=== PATIENT | female | born 1945 | race Caucasian/White ===

== ENCOUNTER 2017-08-31 17:26 | Inpatient (IN) | payer OTHER, MEDICARE ==
[~2017-08-31] VITALS: Ht 161.3 cm; Wt 92.1 kg
[~2017-08-31 17:26] MED LIST: ALBUTEROL2.5 MG/3 M INH; ASPIRIN81 M4 PO; CELECOXIB200 M1 PO; DAILY VITE1 EACH PO; DULOXETINE HCL60 MG PO; FISH OIL 1,0001 EACH PO; GABAPENTIN300 M2 PO; HUMALOG KW100 UNIT/1 SC; LEVEMIR FL100 UNIT/1 SC; LEVEMIR100 UNIT/1 SC; LISINOPRIL10 M1 PO; METFORMIN HCL1000 M1 PO; OMEPRAZOLE20 M2 PO; PREDNISONE10 M2 PO; PROAIR HFA8.5 GM INH; SIMVASTATIN20 M2 PO; TIZANIDINE HCL2 M1 PO; TRAMADOL HCL50 M1 PO; URSODIOL300 M1 PO
--- NOTE | 2017-08-31 19:33 | RADIOLOGY REPORT ---
EXAMINATION: XR CHEST CLINICAL INFORMATION: Rule out pneumonia. Chronic cough, rhonchi, immunocompromised. COMPARISON: Chest CTA 08/24/2017. TECHNIQUE: 2 views of the chest were obtained. FINDINGS: There is new airspace opacity in the left lower lobe overlying the spine on the lateral view but not well seen on the frontal view. This region was clear on the plant operations vice president image of 08/24/2017. This finding is concerning for developing pneumonia. The lungs are otherwise clear without edema, effusion, or pneumothorax. The cardiomediastinal silhouette is stable. There is a right chest wall port in place. There are multilevel degenerative changes in the thoracic spine. IMPRESSION: Findings concerning for developing pneumonia in the left lower lobe.
--- NOTE | 2017-08-31 21:46 | ED DYSPNEA/ASTHMA COMPLAINT ---
History of Present Illness General Chief Complaint: General Adult Stated Complaint: PT WAS SENT FOR A CHEST XRAY Source: patient, old records Exam Limitations: no limitations Vital Signs & Intake/Output Vital Signs & Intake/Output Vital Signs Date Time Temp Pulse Resp B/P B/P Pulse O2 O2 Flow FiO2 Mean Ox Delivery Rate 08/31 2317 98.5 104 18 138/84 93 Room Air Room Air 08/31 1820 98.0 116 16 149/89 92 Room Air ED Intake and Output 09/01 0000 08/31 1200 Intake Total Output Total Balance Patient 203 lb Weight Weight Reported by Patient Measurement Method Allergies Coded Allergies: erythromycin base (UNKNOWN 08/04/17) indomethacin (UNKNOWN 08/04/17) Reconcile Medications Albuterol Sulfate (Proair Hfa) 90 MCG HFA.AER.AD 2 PUF INH Q4-6 PRN PRN Wheeze /SOB . Aspirin (Aspirin*) 81 MG TAB.CHEW 1 TAB PO DAILY HEART HEALTH (Reported) Celecoxib 200 MG CAPSULE 1 CAP PO DAILY PRN PAIN (Reported) Duloxetine HCl 60 MG CAPSULE.DR 1 CAP PO DAILY ANXIETY (Reported) Gabapentin 300 MG CAPSULE 2 CAP PO TID NEUROPATHY (Reported) Insulin Detemir (Levemir) 100 UNIT/ML VIAL 45 U SC DAILY DIABETES (Reported) Insulin Detemir (Levemir Flextouch) 100 UNIT/ML (3 ML) INSULN.PEN 48 U SC QPM DIABETES (Reported) Insulin Lispro (Humalog Kwikpen U-100) 100 UNIT/ML INSULN.PEN 8 U SC DAILY DIABETES (Reported) Insulin Lispro (Humalog Kwikpen U-100) 100 UNIT/ML INSULN.PEN 10 U SC QPM DIABETES (Reported) Lisinopril 10 MG TABLET 0.5 TAB PO DAILY HEART (Reported) Metformin HCl 1,000 MG TABLET 1 TAB PO BID DIABETES (Reported) Multivitamin (Daily Janine) 1 EACH TABLET 1 TAB PO DAILY VITAMIN SUPPORT ( Reported) [place]-3 Fatty Acids/Fish Oil (Fish Oil 1,000 MG Capsule) 340 MG-1,000 MG CAPSULE 1 CAP PO DAILY SUPPLEMENT (Reported) Omeprazole 20 MG CAPSULE.DR 1 CAP PO DAILY GI (Reported) Prednisone 10 MG TABLET 1 TAB PO DAILY Shortness of Breath . Simvastatin (Simvastatin*) 20 MG TABLET 1 TAB PO QPM CHOLESTEROL (Reported) Tizanidine HCl 2 MG TABLET 1-2 TAB PO TID PRN PAIN (Reported) Tramadol HCl 50 MG TABLET 1-2 TAB PO TIDPRN PRN PAIN (Reported) Ursodiol 300 MG CAPSULE 1 CAP PO DAILY GALLSTONE (Reported) Triage Note: 71F RETURNS TO ED AFTER RECENT ADMISSION FOR OBS FOR SOB. SAW PA TODAY WHO LISTENED TO HER LUNG AND IS CONCERNED SHE HAS PNA, SO SENT HER TO ED FOR CXR AND POSSIBLE ADMISSION. PT NOTABLY SOB WITH EXERTION AND AMBULATORY O2 SAT 89-90% IN TRIAGE AND WAITING ROOM. TACHYCARDIC ON EXERTION RATE 110'S. COUGH IS RONCHOROUS BUT UNABLE TO EXPECTORATE. +YELLOW NASAL DISCHARGE. LAST CHEMO TX 08/12/17 FOR PERITONEAL CARCINOMA. TX 08/12/17 FOR PERITONEAL CARCINOMA. Triage Nurses Notes Reviewed? yes HPI: 71 yo F with h/o recently diagnosed primary peritoneal carcinoma, T2DM, HTN, chronic back pain Curly undergoing chemotherapy her next treatment was scheduled for this upcoming week presents the ER after she was seen at an urgent care and was sent in for evaluation. The patient was seen here 7 days ago for shortness of breath she was kept as an observation for bronchitis she had a CAT scan and chest x-ray at that time or unremarkable. She was sent home on a Medrol dose pack and inhalers. She states she's been feeling more winded with exertion. No fevers or chills. She denies sputum production chest pain abdominal pain nausea vomiting diarrhea. Patient oxygen saturation 89-90% with exertion symptoms are better with rest (Abdi Hampton) Past History Travel History Traveled to [place] past 21 day No Medical History Any Pertinent Medical History? see below for history Neurological: NONE EENT: NONE Cardiovascular: NONE Respiratory: NONE Gastrointestinal: NONE Hepatic: NONE Renal: NONE Musculoskeletal: NONE Psychiatric: NONE Endocrine: NONE Cancer(s): PERITONEAL CARCINOMA History of MRSA: No History of VRE: No History of CDIFF: No Influenza Vaccine: 08/10/17 Surgical History Surgical History: non-contributory Psychosocial History What is your primary language Danish Tobacco Use: Quit >30 days ago Family History Hx Contributory? No (Abdi Hampton) Review of Systems Review of Systems Constitutional: Reports: see HPI. Comments Review of systems: See HPI, All other systems negative. Constitutional, chills no fever, HEENT: no sore throat no congestion, no ear pain Cardiovascular: No chest pain , no palpitation Skin: no rashes, no change in skin Respiratory: dyspnea cough no sputum no hemoptysis GI: No nausea no vomiting, no diarrhea, : No dysuria Muscle skeletal: No joint pain, no back pain, no neck pain, Neurologic: , no headache Psych: No stress Heme/endocrine: No bruising Immunology: No lymphadenopathy (Abdi Hampton) Physical Exam Physical Exam General Appearance: well developed/nourished, alert, awake Respiratory: chest non-tender, rhonchi Comments: Well-developed well-nourished person in no acute distress HEENT: Normal EENT exam; PERRL, EOMI,HEAD is atraumatic. moist mucous membranes. Neck: Supple, normal range of motion Back: Nontender, no CVA tenderness. Full range of motion Cardiovascular: Regular rate and rhythms no murmurs rubs Respiratory: No respiratory distress. Patient speaking in full complete sentences. Diminished breath of several left base Abdomen: Soft, nontender nondistended, no appreciable organomegaly. Normal bowel sounds. No rebound/guarding, Extremity: No edema, full range of motion of extremities Neuro: Alert oriented x3, motor sensory normal. There were no obvious focal neurologic abnormalities. Skin: No appreciable rash on exposed skin, skin is warm and dry. Psych: Mood and affect is normal, memory and judgment is normal. Core Measures ACS in differential dx? Yes CVA/TIA Diagnosis No Sepsis Present: No Sepsis Focused Exam Completed? No (Abdi Hampton) Progress Differential Diagnosis: AMI, CHF, COPD, pericarditis, pulmonary embolism, pneumonia, pneumothorax, unstable angina Plan of Care: Orders Procedure Date/time Status Heart Healthy Diet 09/01 B Active LACTIC ACID 09/[address] in observation 08/31 2329 Active ED Holding Orders 08/31 230 Active Vital Signs 08/31 230 Active Code Status 08/31 230 Active RAPID VIRAL INFLUENZA A 08/31 2225 Active BLOOD CULTURE 08/31 2143 Active TROPONIN LEVEL 08/31 2143 Active LACTIC ACID 08/31 2143 Active COMPREHENSIVE METABOLIC PANEL 08/31 2143 Active CBC WITHOUT DIFFERENTIAL 08/31 2143 Complete EKG 08/31 1819 Active Laboratory Tests 08/31/17 2346: Anion Gap 10, Estimated GFR > 60, BUN/Creatinine Ratio 65.0 H, Glucose 215 H, Lactic Acid Pending, Calcium 9.7, Total Bilirubin 0.8, AST 28, ALT 30, Alkaline Phosphatase 79, Troponin I < 0.01, Total Protein 6.9, Albumin 3.6, Globulin 3.3, Albumin/Globulin Ratio 1.1, CBC w Diff NO MAN DIFF REQ, RBC 4.27, MCV 81.0, MCH 26.1 L, RDW 17.0 H, MPV 7.4, Gran % 56.8, Lymphocytes % 33.1, Monocytes % 6.9, Eosinophils % 2.5, Basophils % 0.7, Absolute Granulocytes 5.7, Absolute Lymphocytes 3.3, Absolute Monocytes 0.7 H, Absolute Eosinophils 0.3, Absolute Basophils 0.1, PUBS MCHC 32.2 L Microbiology 08/31 2346 BLOOD: Blood Culture - RECD 08/31 2225 NASOPHARYN: Influenza Virus A & B Rapid Smear - ORD 08/31 2143 BLOOD: Blood Culture - ORD Old records are patient's previous visit on August 24 were reviewed including the CTA and chest x-ray. Discussed the patient's chest x-ray findings labs ordered upon being brought back to the room at 2200 and need for admission given chemotherapy, hypoxia and pneumonia 2100 case d/w dr ramirez will admit d/w dr hinojosa agrees withplan, will follow up on pending labs Diagnostic Imaging: Viewed by Me: Radiology Read. Discussed w/RAD: Radiology Read. Radiology Impression: PATIENT: SEJAL SCHULER PRESENT AGE: 71 PATIENT ACCOUNT NO: [id number] : 45 LOCATION: [facility] ORDERING PHYSICIAN: Rah Arellano (TBS) DO SERVICE DATE: 08/31/17 EXAM TYPE: RAD - XRY-CHEST XRAY, PA AND LATERAL EXAMINATION: XR CHEST CLINICAL INFORMATION: Rule out pneumonia. Chronic cough, rhonchi, immunocompromised. COMPARISON: Chest CTA 08/24/2017. TECHNIQUE: 2 views of the chest were obtained. FINDINGS: There is new airspace opacity in the left lower lobe overlying the spine on the lateral view but not well seen on the frontal view. This region was clear on the garment inspector image of 08/24/2017. This finding is concerning for developing pneumonia. The lungs are otherwise clear without edema, effusion, or pneumothorax. The cardiomediastinal silhouette is stable. There is a right chest wall port in place. There are multilevel degenerative changes in the thoracic spine. IMPRESSION: Findings concerning for developing pneumonia in the left lower lobe. DICTATED BY: Fabiano Bautista MD DATE/TIME DICTATED:08/31/171924 ACID CONDITIONER:MADDISON DATE/TIME TRANSCRIBED:08/31/171924 CONFIDENTIAL, DO NOT COPY WITHOUT APPROPRIATE AUTHORIZATION. <Electronically signed in Other Vendor System> SIGNED BY: Fabiano Bautista MD 08/31/171932 Initial ED EKG: normal intervals, normal p-waves, normal QRS complex, STACH AT 100 Prior EKG: unchanged (Abdi Hampton) Departure Departure Time of Disposition: 2251 Disposition: STILL A PATIENT Condition: Stable Clinical Impression Primary Impression: Pneumonia Secondary Impressions: Hypoxia Referrals: Keshia BAILEY,Saud Aguilar (PCP/Family) Departure Forms: Customer Survey General Discharge Information Admission Note Spoke With: Louann Ramirez MD Documentation of Exam: Documentation of any treatments & extenuating circumstances including Concerns Regarding Discharge (functional status, medication knowledge or non-compliance, living conditions, etc.) that warrant an admission rather than observation: IV antibiotics, respiratory treatments when necessary oncology consult pulmonology consult trend labs and cultures given patient's hypoxia with exertion premature discharge would BE medically harmful (Abdi Hampton) Observation Note Spoke With: Louann Ramirez MD Physician Advisor Notified: NEERU HINOJOSA MD Place Patient In: Non-ED OBS Care Area Rationale for Observation: My rational for observation is as follows [patient was recently discharged from the hospital and now has pneumonia. Patient will need IV antibiotics, pulmonary consult, follow-up cultures]. (Neeru Hinojosa MD) Critical Care Note Critical Care Note Critical Care Time: non-applicable (Abdi Hampton)
[2017-09-01 00:07] LABS: ABSOLUTE BASOPHIL COUNT 0.1 /CUMM (0.0-0.2); ABSOLUTE EOSINOPHIL COUNT 0.3 /CUMM (0.0-0.7); ABSOLUTE GRANULOCYTE CT 5.7 /CUMM (1.4-6.5); ABSOLUTE LYMPH COUNT 3.3 /CUMM (1.2-3.4); ABSOLUTE MONOCYTE COUNT 0.7 /CUMM (0.10-0.60); BASOPHIL % 0.7 % (0.0-2.0); EOSINOPHIL % 2.5 % (0-5); GRANULOCYTE % 56.8 % (42.2-75.2); HEMATOCRIT 34.6 % (37-47); MEAN CORPUSCULAR HGB 26.1 PG (27.0-31.0); MEAN CORPUSCULAR HGB CONC 32.2 G/DL (33.0-37.0); MEAN PLATELET VOLUME 7.4 FL (7.4-10.4); PLATELET COUNT 392 /CUMM (130-400); RED BLOOD CELL CT 4.27 /CUMM (4.20-5.40); WHITE BLOOD CELL COUNT 10.1 /CUMM (4.8-10.8)
--- NOTE | 2017-09-01 01:09 | History & Physical ---
GiannadeliofedericoJohnnieleilani 09/01/17 0109: General Information and HPI MD Statement: I have seen and personally examined SEJAL SCHULER and documented this H&P. The patient is a 71 year old F who presented with a patient stated chief complaint of []. Source of Information: patient, old records Exam Limitations: no limitations History of Present Illness: Ms Schuler is a 71-year-old woman was known to be in her usual state of health until a week ago. She was recently admitted to [facility] with a diagnosis of acute bronchitis and was discharged home on tapering dose of prednisone. She has a PMHx of endometrial Ca s/p hysterectomy( dx'ed 2015), peritoneal carcinoma( dx'ed in 05/2017, tx'ed w/ chemo carbo+taxel 08/12), chronic back pain. After she was discharged from the hospital, she felt improved. Dyspnea improved , and did not have any cough. No fever, chest pain, palpitations. She was seen by her primary care physician, and found abnormal lung sounds; and recommended her to go to the ED for getting an x-ray. No lightheadedness, syncope, or dysuria noted. No nausea or vomiting or diarrhea. Reported improving weakness and lethargy. As per the ED note, she was found to be hypoxemic 89-90%. Reports poor control of blood sugars. Allergies/Medications Allergies: Coded Allergies: erythromycin base (UNKNOWN 08/04/17) indomethacin (UNKNOWN 08/04/17) Home Med list Albuterol Sulfate (Proair Hfa) 90 MCG HFA.AER.AD 2 PUF INH Q4-6 PRN PRN Wheeze /SOB . Aspirin (Aspirin*) 81 MG TAB.CHEW 1 TAB PO DAILY HEART HEALTH (Reported) Celecoxib 200 MG CAPSULE 1 CAP PO DAILY PRN PAIN (Reported) Duloxetine HCl 60 MG CAPSULE.DR 1 CAP PO DAILY ANXIETY (Reported) Fenofibrate,Micronized (Fenofibrate) 134 MG CAPSULE 1 CAP PO DAILY HEART HEALTH (Reported) Gabapentin 300 MG CAPSULE 2 CAP PO BID PAIN CONTROL (Reported) Insulin Detemir (Levemir) 100 UNIT/ML VIAL 45 U SC DAILY DIABETES (Reported) Insulin Detemir (Levemir Flextouch) 100 UNIT/ML (3 ML) INSULN.PEN 48 U SC QPM DIABETES (Reported) Insulin Lispro (Humalog Kwikpen U-100) 100 UNIT/ML INSULN.PEN 8 U SC DAILY DIABETES (Reported) Insulin Lispro (Humalog Kwikpen U-100) 100 UNIT/ML INSULN.PEN 10 U SC QPM DIABETES (Reported) Lisinopril 10 MG TABLET 0.5 TAB PO DAILY HEART (Reported) Metformin HCl 1,000 MG TABLET 1 TAB PO BID DIABETES (Reported) Multivitamin (Daily Janine) 1 EACH TABLET 1 TAB PO DAILY VITAMIN SUPPORT ( Reported) [place]-3 Fatty Acids/Fish Oil (Fish Oil 1,000 MG Capsule) 340 MG-1,000 MG CAPSULE 2 CAP PO BID HEART HEALTH (Reported) Omeprazole 20 MG CAPSULE.DR 1 CAP PO DAILY GI (Reported) Prednisone 10 MG TABLET 1 TAB PO DAILY Shortness of Breath . Prochlorperazine Maleate 10 MG TABLET 1 TAB PO Q6-8P NAUSEA (Reported) Saliva Substitute Combo No.9 (Biotene) 473 ML MOUTHWASH 1 UDC SG TIDPRN PRN PAIN SCALE 4-6 (MODERATE) (Reported) Simvastatin (Simvastatin*) 20 MG TABLET 1 TAB PO QPM CHOLESTEROL (Reported) Tizanidine HCl 2 MG TABLET 1-2 TAB PO TID PRN PAIN (Reported) Tramadol HCl 50 MG TABLET 1-2 TAB PO TIDPRN PRN PAIN (Reported) Turmeric Root Extract (Turmeric) 500 MG CAPSULE 2 CAP PO BID IMMUNE SUPPORT ( Reported) Ursodiol 300 MG CAPSULE 1 CAP PO DAILY GALLSTONE (Reported) Past History Travel History Traveled to [place] past 21 day No Medical History Neurological: NONE EENT: NONE Cardiovascular: NONE Respiratory: NONE Gastrointestinal: NONE Hepatic: NONE Renal: NONE Musculoskeletal: NONE Psychiatric: NONE Endocrine: NONE Cancer(s): PERITONEAL CARCINOMA History of MRSA: No History of VRE: No History of CDIFF: No Influenza Vaccine: 08/10/17 Surgical History Surgical History: non-contributory Past Family/Social History Functional Ability ADLs Independent: dressing, eating, toileting, bathing. 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 Review of Systems Review of Systems Constitutional: Reports: see HPI. Exam & Diagnostic Data Last 24 Hrs of Vital Signs/I&O Vital Signs Date Time Temp Pulse Resp B/P B/P Pulse O2 O2 Flow FiO2 Mean Ox Delivery Rate 09/01 0324 98.7 103 20 140/70 93 Nasal 2.0L Cannula 09/01 0300 93 Nasal 2.0L Cannula 09/01 0209 97.7 83 20 139/83 92 Room Air 08/31 2317 98.5 104 18 138/84 93 Room Air Room Air 08/31 1820 98.0 116 16 149/89 92 Room Air Intake & Output 09/01 0800 09/01 0000 08/31 1600 Intake Total 610 Output Total 300 Balance 310 Intake, IV 250 Intake, Oral 360 Output, Urine 300 Patient 203 lb 203 lb Weight Weight Reported by Patient Measurement Method Physical Exam General Appearance Alert, Oriented X3, Cooperative Skin No Rashes, No Breakdown, No Significant Lesion Skin Temp/Moisture Exam: Warm/Dry Sepsis Skin Exam (color): Normal for Ethnicity, skin normal at the site of port. No erythema. HEENT Atraumatic, PERRLA, EOMI Neck Supple Lymphatic Cervical nl Cardiovascular Regular Rate, Normal S1, Normal S2, No Murmurs Lungs Normal Air Movement, crackles bilaterally, at lung bases. Abdomen Normal Bowel Sounds, Soft, No Tenderness, No Hepatospenomegaly Neurological Normal Speech, Strength at 5/5 X4 Ext, Normal Tone, Sensation Intact, Cranial Nerves 3-12 NL, Reflexes 2+ Extremities No Cyanosis, No Edema, Normal Pulses Vascular Pulses Symmetrical Last 24 Hrs of Labs/José Miguel: Laboratory Tests 09/01/17 0620: Sodium Pending, Potassium Pending, Chloride Pending, Carbon Dioxide Pending, Anion Gap Pending, BUN Pending, Creatinine Pending, BUN/Creatinine Ratio Pending , CBC w Diff Pending, WBC Pending, RBC Pending, Hgb Pending, Hct Pending, MCV Pending, MCH Pending, RDW Pending, Plt Count Pending, MPV Pending, PUBS MCHC Pending 09/01/17 0043: Lactic Acid Cancelled 08/31/17 2346: Anion Gap 10, Estimated GFR > 60, BUN/Creatinine Ratio 65.0 H, Glucose 215 H, Lactic Acid 0.9, Calcium 9.7, Total Bilirubin 0.8, AST 28, ALT 30, Alkaline Phosphatase 79, Troponin I < 0.01, Yzg-K-Msyasqaqcav Pept 102, Total Protein 6.9 , Albumin 3.6, Globulin 3.3, Albumin/Globulin Ratio 1.1, CBC w Diff NO MAN DIFF REQ, RBC 4.27, MCV 81.0, MCH 26.1 L, RDW 17.0 H, MPV 7.4, Gran % 56.8, Lymphocytes % 33.1, Monocytes % 6.9, Eosinophils % 2.5, Basophils % 0.7, Absolute Granulocytes 5.7, Absolute Lymphocytes 3.3, Absolute Monocytes 0.7 H, Absolute Eosinophils 0.3, Absolute Basophils 0.1, PUBS MCHC 32.2 L Microbiology 09/01 645 URINE ROUT: Legionella Antigen - RECD 09/01 645 URINE ROUT: Streptococcus pneumoniae Antigen (M - RECD 09/01 417 LOWER RESP: Respiratory Culture - COLB 09/01 417 LOWER RESP: Gram Stain - COLB 09/01 030 LOWER RESP: Respiratory Culture - COLB 09/01 0304 LOWER RESP: Gram Stain - COLB 09/01 0105 BLOOD: Blood Culture - RECD 09/01 0010 NASOPHARYN: Influenza Virus A & B Rapid Smear - COMP 08/31 2346 BLOOD: Blood Culture - RECD Diagnostic Data EKG Results Normal sinus rhythm, multiple PACs, QTC 398. Assessment/Plan Assessment: Ms Schuler is a 71-year-old woman with a PMHx of endometrial Ca s/p hysterectomy ( dx'ed 2015), peritoneal carcinoma( dx'ed in 05/2017, tx'ed w/ chemo carbo+ taxel 08/12), chronic back pain, is being evaluated for possible respiratory infection. At the time of admission, vitals-98.0, pulse rate 104, respiration 18, blood pressure 149/89, pulse ox 92% on room air. Pertinent lab findings: W BC 10.1 (4.4 on 08/24 post chemotherapy) Hemoglobin 11.2 (10.3 on 08/24 post chemotherapy) Platelets 392 Influenza A and B-negative Chest x-ray - as reported by the radiologist- There is new airspace opacity in the left lower lobe overlying the spine on the lateral view but not well seen on the frontal view. Etiology in her case is unclear, as the patient was recently treated with prednisone with no improvement in symptoms. Since the patient has improvement in her symptoms, I would doubt that this is pneumonia. Although she had CT done in the past which did not reveal any parenchymal changes, a dedicated dry CAT scan should be done to see if she has any parenchymal pathology. Suspicion is that she has an interstitial lung disease or reactive airway disease, for which lung function test should be done. Plan: #1 pneumonia- radiological findings are not consistent with pneumonia ( personally reviewed), but given history of recent chemotherapy, and inability to mount an immune response, would treated with ceftriaxone and azithromycin. Defer the decision, to the primary team, to continue the antibiotics after reviewing the culture results. Obtain CT chest dry. Obtain lower aspirate cultures, urinary strep and Legionella antigen. Rule out CHF, although she did not have any other findings suggestive of volume overload. Check proBNP. Please let Dr Galan know, as a courtesy, that the pt is admitted here. #2 diabetes-appears to be uncontrolled. She has been started on lower dose of Levemir and NovoLog sliding scale at this time, given she is admitted to the hospital. Would increase the dose to her home dose in the next 24 hours based upon blood glucose levels. Levemir 25 twice a day, NovoLog sliding scale. #3 hypertension-monitor vitals closely. Continue lisinopril. housekeeping- #1 DVT prophylaxis-subcutaneous heparin #2 pain pathway #3 full code. #4 Port site care- check daily. Medication reconciliation Lipitor 10 mg-continued Prilosec-20 mg-continued Lexapro 5 mg-continued Lantus-discontinue, changed to Levemir gabapentin 600 mg-continued fenofibrate 145-continued Cymbalta 60 mg-continued Aspirin 81 mg-continued Humalog-discontinued, changed to NovoLog Tizanidine 2 mg-continued Albuterol-continued As Ranked By This Provider Problem List: 1. Hypoxia 2. Pneumonia 3. Primary peritoneal carcinomatosis Core Measures/Misc (05/23) Acute Coronary Syndrome ACS Diagnosis: No Congestive Heart Failure Congestive Heart Failure Diagnosis No Cerebrovascular Accident CVA/TIA Diagnosis: No VTE (View Protocol) VTE Risk Factors Acute Medical Illness No Mechanical VTE Prophylaxis d/t N/A MechProphylax Ordered No VTE Pharm Prophylaxis d/t NA PharmProphylax ordered Sepsis (View protocol) Sepsis Present: No Louann Ramirez 09/01/17 0822: Attending MD Review Statement Attending Statement Attending MD Statement: examined this patient, discuss w/resident/PA/3RD GRADE TEACHER, agreed w/resident/PA/3RD GRADE TEACHER, reviewed EMR data (avail), reviewed images, amended to note Attending Assessment/Plan: CC: Persistent cough PMH: Primary peritoneal carcinoma, currently on chemotherapy, DM, HTN, Mnire's disease, HLD Patient was placed in observation from August 24 to August 25 for worsening of shortness of breath and was evaluated with CTA to rule out any PE, thought that she had bronchitis and was treated symptomatically. Patient was getting better in terms of shortness of breath but she had persistent nonproductive cough, she went to primary care office who heard rhonchi on the left side so she was suggested to go to ER. Patient denies any fever at home. Denies any chest pain, palpitations, urinary symptoms, nausea vomiting, weight loss or weight gain. Vitals: Afebrile, pulse 100, RR 20, blood pressure 149/89, saturating 92% 2 L nasal cannula On examination: A O 3, cooperative, mild respiratory distress, neck supple, JVD normal, no lymphadenopathy, mucosa moist, no focal neurological deficit, no dependent edema, no obvious skin rashes or inflammation CVS: S1-S2, RRR. RS: Bibasilar dry crackles. Abdomen: Soft, NT, ND, bowel sounds present. Labs: CBC, BMP, LFT, troponin unremarkable Chest x-ray: Findings concerning for developing pneumonia in the left lower lobe ECG: Multiple PACs Assessment and plan 71-year-old female with past medical history significant for family peritoneal carcinoma currently on chemotherapy, DM, HTN, Mnire's disease and hyperlipidemia presented in ER for persistent nonproductive cough, shortness of breath. Patient was placed in observation in the hospital for further evaluation for shortness of breath on August 25, investigated with a CTA there was no evidence of pneumonia, pulmonary embolism, venous congestion. Patient was discharged with diagnosis of bronchitis with tapering dose of prednisone, patient's symptoms persisted at home, she followed up with primary care physician who found some rhonchi on auscultation and was suggested to go to ER. In ER Patient did not have significant fever but had some tachycardia, requiring 2 L nasal cannula saturating at 93%, that is no JVD elevation, no lower extremity swelling but patient has very fine dry crackles bilateral lower lung chung. She does not have significant leukocytosis but was found to have left lower lobe pneumonia. As patient has dry crackles both lung chung, I reviewed x -ray and could not find any pneumonia focus, also reviewed CTA, they did not mention any parenchymal pathology, getting CT chest without contrast. Given her persistent cough, shortness of breath, hypoxia and possibility of pneumonia on chest x-ray will continue to treat her as community-acquired pneumonia but other possibilities should be ruled out as well. + Community-acquired pneumonia + History of Primary peritoneal carcinoma, currently on chemotherapy, DM, HTN, M - Place in observation on Gen. medicine - Continue O2 by nasal cannula, try to wean off - Check proBNP - CT chest without contrast - Continue IV ceftriaxone and azithromycin - TRC and nebulization with albuterol - Mucinex - DVT prophylaxis - Continue all her home medications - Continue all her home medications #2 hepatic encephalopathy-none. #3 cirrhosis-unsure, if any fibro scan was done. Louann Ramirez 09/01/17 0822: Attending MD Review Statement Attending Statement Attending MD Statement: examined this patient, discuss w/resident/PA/3RD GRADE TEACHER, agreed w/resident/PA/3RD GRADE TEACHER, reviewed EMR data (avail), reviewed images, amended to note Attending Assessment/Plan: CC: Persistent cough PMH: Primary peritoneal carcinoma, currently on chemotherapy, DM, HTN, Mnire's disease, HLD Patient was placed in observation from August 24 to August 25 for worsening of shortness of breath and was evaluated with CTA to rule out any PE, thought that she had bronchitis and was treated symptomatically. Patient was getting better in terms of shortness of breath but she had persistent nonproductive cough, she went to primary care office who heard rhonchi on the left side so she was suggested to go to ER. Patient denies any fever at home. Denies any chest pain, palpitations, urinary symptoms, nausea vomiting, weight loss or weight gain. Vitals: Afebrile, pulse 100, RR 20, blood pressure 149/89, saturating 92% 2 L nasal cannula On examination: A O 3, cooperative, mild respiratory distress, neck supple, JVD normal, no lymphadenopathy, mucosa moist, no focal neurological deficit, no dependent edema, no obvious skin rashes or inflammation CVS: S1-S2, RRR. RS: Bibasilar dry crackles. Abdomen: Soft, NT, ND, bowel sounds present. Labs: CBC, BMP, LFT, troponin unremarkable Chest x-ray: Findings concerning for developing pneumonia in the left lower lobe ECG: Multiple PACs Assessment and plan 71-year-old female with past medical history significant for family peritoneal carcinoma currently on chemotherapy, DM, HTN, Mnire's disease and hyperlipidemia presented in ER for persistent nonproductive cough, shortness of breath. Patient was placed in observation in the hospital for further evaluation for shortness of breath on August 25, investigated with a CTA there was no evidence of pneumonia, pulmonary embolism, venous congestion. Patient was discharged with diagnosis of bronchitis with tapering dose of prednisone, patient's symptoms persisted at home, she followed up with primary care physician who found some rhonchi on auscultation and was suggested to go to ER. In ER Patient did not have significant fever but had some tachycardia, requiring 2 L nasal cannula saturating at 93%, that is no JVD elevation, no lower extremity swelling but patient has very fine dry crackles bilateral lower lung chung. She does not have significant leukocytosis but was found to have left lower lobe pneumonia. As patient has dry crackles both lung chung, I reviewed x -ray and could not find any pneumonia focus, also reviewed CTA, they did not mention any parenchymal pathology, getting CT chest without contrast. Given her persistent cough, shortness of breath, hypoxia and possibility of pneumonia on chest x-ray will continue to treat her as community-acquired pneumonia but other possibilities should be ruled out as well. + Community-acquired pneumonia + History of Primary peritoneal carcinoma, currently on chemotherapy, DM, HTN, M - Place in observation on Gen. medicine - Continue O2 by nasal cannula, try to wean off - Check proBNP - CT chest without contrast - Continue IV ceftriaxone and azithromycin - TRC and nebulization with albuterol - Mucinex - DVT prophylaxis - Continue all her home medications
[2017-09-01] MEDS ORDERED: BIOTENE473 ML SG (02:33)
[2017-09-01] MEDS ORDERED: FENOFIBRATE134 M1 PO (02:35)
[2017-09-01] MEDS ORDERED: PROCHLORPERAZIN10 MG PO (02:35)
[2017-09-01] MEDS ORDERED: TURMERIC500 M2 PO (02:36)
[2017-09-01 03:24] VITALS: BP 140/70
[2017-09-01 08:11] LABS: ABSOLUTE BASOPHIL COUNT 0.1 /CUMM (0.0-0.2); MEAN CORPUSCULAR HGB CONC 32.6 G/DL (33.0-37.0)
--- NOTE | 2017-09-01 08:15 | PN- Housestaff ---
Subjective Follow-up For: pneumonia Subjective: patient complaining of dyspnea this morning and persistent cough, not productive of any sputum Review of Systems Constitutional: Reports: see HPI. Objective Last 24 Hrs of Vital Signs/I&O Vital Signs Date Time Temp Pulse Resp B/P B/P Pulse O2 O2 Flow FiO2 Mean Ox Delivery Rate 09/01 1040 103 140/70 09/01 0800 93 Nasal 2.0L Cannula 09/01 0324 98.7 103 20 140/70 93 Nasal 2.0L Cannula 09/01 0300 93 Nasal 2.0L Cannula 09/01 0209 97.7 83 20 139/83 92 Room Air 08/31 2317 98.5 104 18 138/84 93 Room Air Room Air 08/31 1820 98.0 116 16 149/89 92 Room Air Intake & Output 09/01 1600 09/01 0800 09/01 0000 Intake Total 610 Output Total 300 Balance 310 Intake, IV 250 Intake, Oral 360 Output, Urine 300 Patient 92.079 kg 92.079 kg Weight Weight Reported by Patient Measurement Method Physical Exam General Appearance: Alert, Oriented X3, Cooperative, No Acute Distress, tachypneic Cardiovascular: Regular Rate, Normal S1, Normal S2, No Murmurs, right chest wall port, no erythema Lungs: crackles left base, right chest port Abdomen: Normal Bowel Sounds, Soft, No Tenderness, No Masses Extremities: No Clubbing, No Cyanosis, No Edema, Normal Pulses Current Medications: Current Medications Sig/Kwasi Start time Last Medication Dose Route Stop Time Status Admin Acetaminophen 650 MG Q8P PRN 09/01 0315 AC PO Albuterol Sulfate 2 PUF Q4-6 PRN PRN 09/01 0400 AC INH Aspirin 81 MG DAILY 09/01 1000 AC 09/01 PO 1040 Atorvastatin Calcium 10 MG 1700 09/01 1700 AC PO Azithromycin 500 MG 0 09/01 2200 AC Sodium Chloride 250 ML IV Azithromycin 500 MG ONCE ONE 08/31 2215 DC 09/01 Sodium Chloride 250 ML IV 08/31 2314 0133 Ceftriaxone Sodium 1,000 MG 09/01 AC IV Ceftriaxone Sodium 0 .STK-MED ONE 09/01 0121 DC .ROUTE Ceftriaxone Sodium 1,000 MG ONCE ONE 08/31 2215 DC 09/01 IV 08/31 2216 0120 Duloxetine HCl 60 MG DAILY 09/01 1000 AC 09/01 PO 1040 Fenofibrate 145 MG DAILY 09/01 1000 AC 09/01 PO 1040 Gabapentin 600 MG BID 09/01 1000 AC 09/01 PO 1040 Guaifenesin 600 MG Q12 09/01 1353 AC PO Heparin Sodium 5,000 UNIT Q8 09/01 0600 AC 09/01 (Porcine) SC 0622 Insulin Aspart 0 TIDAC 09/01 0800 r 09/01 SC 1237 Insulin Detemir 25 UNITS BID 09/01 1000 AC 09/01 SC 1040 Lisinopril 5 MG DAILY 09/01 1000 AC 09/01 PO 1040 Morphine Sulfate 2 MG Q8P PRN 09/01 0315 AC IV Omeprazole 20 MG DAILY 09/01 1000 AC 09/01 PO 1040 Ondansetron HCl 4 MG Q6P PRN 09/01 0315 DC IV Ondansetron HCl 0 .STK-MED ONE 09/01 0149 DC .ROUTE Ondansetron HCl 4 MG ONCE ONE 09/01 0145 DC 09/01 IV 09/01 0146 0149 Oxycodone HCl 5 MG Q8P PRN 09/01 0315 CAN PO Tizanidine HCl 2 MG TID PRN 09/01 0415 AC PO Tramadol HCl 50 MG TIDPRN PRN 09/01 0415 AC 09/01 PO 1044 Last 24 Hrs of Lab/José Miguel Results Last 24 Hrs of Labs/Mics: Laboratory Tests 09/01/17 0620: Anion Gap 9, Estimated GFR > 60, BUN/Creatinine Ratio 42.0 H, CBC w Diff NO MAN DIFF REQ, RBC 3.99 L, MCV 82.3, MCH 26.9 L, RDW 17.6 H, MPV 7.6, Gran % 75.7 H, Lymphocytes % 16.8 L, Monocytes % 5.0, Eosinophils % 1.9, Basophils % 0.6, Absolute Granulocytes 11.4 H, Absolute Lymphocytes 2.5, Absolute Monocytes 0.8 H, Absolute Eosinophils 0.3, Absolute Basophils 0.1, PUBS MCHC 32.6 L 09/01/17 0043: Lactic Acid Cancelled 08/31/17 0646: Anion Gap 10, Estimated GFR > 60, BUN/Creatinine Ratio 65.0 H, Glucose 215 H, Lactic Acid 0.9, Calcium 9.7, Total Bilirubin 0.8, AST 28, ALT 30, Alkaline Phosphatase 79, Troponin I < 0.01, Anp-G-Lypofpgjimz Pept 102, Total Protein 6.9 , Albumin 3.6, Globulin 3.3, Albumin/Globulin Ratio 1.1, CBC w Diff NO MAN DIFF REQ, RBC 4.27, MCV 81.0, MCH 26.1 L, RDW 17.0 H, MPV 7.4, Gran % 56.8, Lymphocytes % 33.1, Monocytes % 6.9, Eosinophils % 2.5, Basophils % 0.7, Absolute Granulocytes 5.7, Absolute Lymphocytes 3.3, Absolute Monocytes 0.7 H, Absolute Eosinophils 0.3, Absolute Basophils 0.1, PUBS MCHC 32.2 L Microbiology 09/01 645 URINE ROUT: Legionella Antigen - COMP 09/01 645 URINE ROUT: Streptococcus pneumoniae Antigen (M - COMP 09/01 417 LOWER RESP: Respiratory Culture - COLB 09/01 0417 LOWER RESP: Gram Stain - COLB 09/01 0304 LOWER RESP: Respiratory Culture - COLB 09/01 0304 LOWER RESP: Gram Stain - COLB 09/01 0105 BLOOD: Blood Culture - RECD 09/01 0010 NASOPHARYN: Influenza Virus A & B Rapid Smear - COMP 08/31 2346 BLOOD: Blood Culture - RES Assessment/Plan Assessment: 71 year old female with past medical history significant for diabetes, HTN, endometrial cancer s/p MALINI/BSO in 2016 and primary peritoneal carcinoma recently diagnosed in [facility] on chemotherapy with carboplatin and taxel last treatment 08/12 and recently at [facility] for observation with respiratory complaints and was diagnosed viral bronchitis treated with steroid taper and monitored off antibioticspresents with complaints of progressive dyspnea and cough. Acute hypoxemic respiratory failure: secondary to community acquired pneumonia: Patient was hypoxic in ED, Spo2 89% on room air, afebrile, leukocytosis 15,000 no bands Chest x-ray showed an opacity in the left lower lobe suspiscious for developing pneumonia Continue ceftriaxone and azithromycin for presumed community acquired pneumonia Chest CT without IV contrast New patchy nodular foci of consolidation in the lower lobes and medial right lung apex. Numerable small tree-in-bud nodules scattered throughout both lungs, Findings consistent with infectious bronchiolitis/pneumonia Influenza negative, legionella and strep pneumo urinary antigens negative Follow up sputum culture ProBNP negative for congestive heart failure-cardiogenic pulmonary edema Oncology consultation and pulmonary consults placed for pneumonia on chemotherapy Will follow up recommendations TRC evaluation Mucinex 600mg PO BID Diabetes: Accuchecks TIDAC, 220s-300 Novolog sliding scale insulin increased Levemir 25 units BID Check hemoglobin A1C Hypertension: Continue lisinopril Diabetic diet DVT ppx-heparin 5000 units subcutaneous Q8H Full code Problem List: 1. Primary peritoneal carcinomatosis 2. Pneumonia 3. Hypoxia 4. Dyspnea Pain Ratin Pain Location: n/a Pain Goal: Pain 4 or less Pain Plan: prn Tomorrow's Labs & Rationales: cbc, bep
[2017-09-01 08:22] LABS: ABSOLUTE EOSINOPHIL COUNT 0.3 /CUMM (0.0-0.7); ABSOLUTE GRANULOCYTE CT 11.4 /CUMM (1.4-6.5); ABSOLUTE LYMPH COUNT 2.5 /CUMM (1.2-3.4); ABSOLUTE MONOCYTE COUNT 0.8 /CUMM (0.10-0.60); BASOPHIL % 0.6 % (0.0-2.0); EOSINOPHIL % 1.9 % (0-5); GRANULOCYTE % 75.7 % (42.2-75.2); HEMATOCRIT 32.8 % (37-47); MEAN CORPUSCULAR HGB 26.9 PG (27.0-31.0); MEAN CORPUSCULAR VOLUME 82.3 FL (81.0-99.0); MEAN PLATELET VOLUME 7.6 FL (7.4-10.4); PLATELET COUNT 338 /CUMM (130-400); RBC DISTRIBUTION WIDTH 17.6 % (11.5-14.5); RED BLOOD CELL CT 3.99 /CUMM (4.20-5.40); WHITE BLOOD CELL COUNT 15.1 /CUMM (4.8-10.8)
--- NOTE | 2017-09-01 10:36 | CT SCAN REPORT ---
EXAMINATION: CT CHEST WITHOUT CONTRAST CLINICAL INFORMATION: Persistent hypoxia. History of peritoneal carcinomatosis. COMPARISON: Chest CT from 08/24/2017. PET-CT images from 06/29/2017. TECHNIQUE: Multidetector volumetric CT imaging of the chest was done. Axial MIP volume rendering provided. Sagittal and coronal reformatted images were obtained. DLP: 695 mGy-cm FINDINGS: LUNGS AND PLEURA: Trachea and central airways are widely patent and normal in caliber. Within the medial right lung apex, there is a new, small, approximately 1 cm area of consolidation. There are innumerable new small tree-in-bud nodular opacities scattered throughout both lungs. In addition, patchy nodular foci of consolidation are present within lower lobes. No pneumothorax or pleural effusion. MEDIASTINUM: The heart size is normal. Atherosclerotic calcification of coronary arteries and thoracic aorta without aortic aneurysm. No pericardial effusion. Esophagus and thyroid gland are unremarkable. LYMPHATICS: No axillary or internal mammary lymphadenopathy. No pathologic sized mediastinal or hilar lymph nodes. There is a right chest wall medication port with central catheter terminating within the distal superior vena cava. UPPER ABDOMEN: Cholelithiasis. 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 No acute findings in the visualized upper abdomen. OSSEOUS STRUCTURES: Multilevel disc-vertebral degenerative change of the visualized lower cervical and thoracic spine. No aggressive bone lesions. IMPRESSION: Compared to 08/24/2017, there are new patchy nodular foci of consolidation in the lower lobes and medial right lung apex. Findings are consistent with pneumonia. In addition, there are numerable small tree-in-bud nodules scattered throughout both lungs, consistent with infectious bronchiolitis. These findings are not specific for any particular organism. Tree-in-bud nodular opacities can be seen with viral, fungal and bacterial (including mycobacterial) infections.
--- NOTE | 2017-09-01 13:02 | Cons- Oncology ---
General Information and HPI Consulting Request Date of Consult: 09/01/17 Requested By: Beverly Jorgensen MD Reason for Consult: primary peritoneal carcinoma Source of Information: patient Exam Limitations: no limitations History of Present Illness: Ms. Coto is a 71-year-old female with endometrial cancer s/p hysterectomy ( FIGO 1A) and recently primary peritoneal carcinoma s/p carboplatin/paclitaxel ( 08/12) who presented with shortness of breath and cough. She was seen by her primary care and noted to have abnormal lung sounds and was sent to ER for evaluation. She was recently admitted for acute bronchitis with CTA negative for PE and acute processes at that time. She was discharged with prednisone taper. She felt well but continued to have cough and dyspnea. She has no fever or chills. Her low grade temperature has improved. She has no nausea or vomiting. She has no chest pain. She feels generally well otherwise. Allergies/Medications Allergies: Coded Allergies: erythromycin base (UNKNOWN 08/04/17) indomethacin (UNKNOWN 08/04/17) Home Med List: Albuterol Sulfate (Proair Hfa) 90 MCG HFA.AER.AD 2 PUF INH Q4-6 PRN PRN Wheeze /SOB . Aspirin (Aspirin*) 81 MG TAB.CHEW 1 TAB PO DAILY HEART HEALTH (Reported) Celecoxib 200 MG CAPSULE 1 CAP PO DAILY PRN PAIN (Reported) Duloxetine HCl 60 MG CAPSULE.DR 1 CAP PO DAILY ANXIETY (Reported) Fenofibrate,Micronized (Fenofibrate) 134 MG CAPSULE 1 CAP PO DAILY HEART HEALTH (Reported) Gabapentin 300 MG CAPSULE 2 CAP PO BID PAIN CONTROL (Reported) Insulin Detemir (Levemir) 100 UNIT/ML VIAL 45 U SC DAILY DIABETES (Reported) Insulin Detemir (Levemir Flextouch) 100 UNIT/ML (3 ML) INSULN.PEN 48 U SC QPM DIABETES (Reported) Insulin Lispro (Humalog Kwikpen U-100) 100 UNIT/ML INSULN.PEN 8 U SC DAILY DIABETES (Reported) Insulin Lispro (Humalog Kwikpen U-100) 100 UNIT/ML INSULN.PEN 10 U SC QPM DIABETES (Reported) Lisinopril 10 MG TABLET 0.5 TAB PO DAILY HEART (Reported) Metformin HCl 1,000 MG TABLET 1 TAB PO BID DIABETES (Reported) Multivitamin (Daily Janine) 1 EACH TABLET 1 TAB PO DAILY VITAMIN SUPPORT ( Reported) [place]-3 Fatty Acids/Fish Oil (Fish Oil 1,000 MG Capsule) 340 MG-1,000 MG CAPSULE 2 CAP PO BID HEART HEALTH (Reported) Omeprazole 20 MG CAPSULE.DR 1 CAP PO DAILY GI (Reported) Prednisone 10 MG TABLET 1 TAB PO DAILY Shortness of Breath . Prochlorperazine Maleate 10 MG TABLET 1 TAB PO Q6-8P NAUSEA (Reported) Saliva Substitute Combo No.9 (Biotene) 473 ML MOUTHWASH 1 UDC SG TIDPRN PRN PAIN SCALE 4-6 (MODERATE) (Reported) Simvastatin (Simvastatin*) 20 MG TABLET 1 TAB PO QPM CHOLESTEROL (Reported) Tizanidine HCl 2 MG TABLET 1-2 TAB PO TID PRN PAIN (Reported) Tramadol HCl 50 MG TABLET 1-2 TAB PO TIDPRN PRN PAIN (Reported) Turmeric Root Extract (Turmeric) 500 MG CAPSULE 2 CAP PO BID IMMUNE SUPPORT ( Reported) Ursodiol 300 MG CAPSULE 1 CAP PO DAILY GALLSTONE (Reported) Current Medications: Current Medications Sig/Kwasi Start time Last Medication Dose Route Stop Time Status Admin Acetaminophen 650 MG Q8P PRN 09/01 0315 AC PO Albuterol Sulfate 2 PUF Q4-6 PRN PRN 09/01 0400 AC INH Aspirin 81 MG DAILY 09/01 1000 AC 09/01 PO 1040 Atorvastatin Calcium 10 MG 1700 09/01 1700 AC PO Azithromycin 500 MG 2200 09/01 2200 AC Sodium Chloride 250 ML IV Azithromycin 500 MG ONCE ONE 08/31 2215 DC 09/01 Sodium Chloride 250 ML IV 08/31 2314 0133 Ceftriaxone Sodium 1,000 MG 09/01 2200 AC IV Ceftriaxone Sodium 0 .STK-MED ONE 09/01 0121 DC .ROUTE Ceftriaxone Sodium 1,000 MG ONCE ONE 08/315 DC 09/01 IV 08/31 2216 0120 Duloxetine HCl 60 MG DAILY 09/01 1000 AC 09/01 PO 1040 Fenofibrate 145 MG DAILY 09/01 1000 AC 09/01 PO 1040 Gabapentin 600 MG BID 09/01 1000 AC 09/01 PO 1040 Heparin Sodium 5,000 UNIT Q8 09/01 0600 AC 09/01 (Porcine) SC 0622 Insulin Aspart 0 TIDAC 09/01 0800 AC 09/01 SC 1237 Insulin Detemir 25 UNITS BID 09/01 1000 AC 09/01 SC 1040 Lisinopril 5 MG DAILY 09/01 1000 AC 09/01 PO 1040 Morphine Sulfate 2 MG Q8P PRN 09/01 0315 AC IV Omeprazole 20 MG DAILY 09/01 1000 AC 09/01 PO 1040 Ondansetron HCl 4 MG Q6P PRN 09/01 0315 DC IV Ondansetron HCl 0 .STK-MED ONE 09/01 0149 DC .ROUTE Ondansetron HCl 4 MG ONCE ONE 09/01 0145 DC 09/01 IV 09/01 0146 0149 Oxycodone HCl 5 MG Q8P PRN 09/01 0315 CAN PO Tizanidine HCl 2 MG TID PRN 09/01 0415 AC PO Tramadol HCl 50 MG TIDPRN PRN 09/01 0415 AC 09/01 PO 1044 Review of Systems Review of Systems Constitutional: Denies: chills, fever. Cardiovascular: Reports: edema, orthopena. Denies: chest pain, palpitations, peripheral edema. Respiratory: Reports: cough, short of breath, sputum production. Denies: wheezing. GI: Reports: abdominal pain. Denies: nausea, vomiting. Genitourinary: Denies: discharge. Musculoskeletal: Denies: back pain. Neurological/Psychological: Denies: anxiety, cognitive dysfunction. Hematologic/Endocrine: Denies: bruising, bleeding. All Other Systems: Reviewed and Negative Past History Travel History Traveled to [place] past 21 day No Medical History Blood Transfusion Hx: No Neurological: NONE EENT: MENIERE'S DISEASE L SIDE Cardiovascular: hypertension, hyperlipidemia Respiratory: bronchitis, pneumonia Gastrointestinal: NONE Hepatic: NONE Renal: NONE Musculoskeletal: chronic back pain, degen joint disease, osteoarthritis Psychiatric: NONE Endocrine: diabetes Blood Disorders: NONE Cancer(s): endometrial cancer, PERITONEAL CARCINOMA WAITER/WAITRESS BAR/Reproductive: NONE Surgical History Surgical History: non-contributory Psychosocial History Smoking Status: Former Smoker Functional Ability ADLs Independent: dressing, eating, toileting, bathing. 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 Exam & Diagnostic Data Vital Signs and I&O Vital Signs Date Time Temp Pulse Resp B/P B/P Pulse O2 O2 Flow FiO2 Mean Ox Delivery Rate 09/01 1040 103 140/70 09/01 0324 98.7 103 20 140/70 93 Nasal 2.0L Cannula 09/01 0300 93 Nasal 2.0L Cannula 09/01 0209 97.7 83 20 139/83 92 Room Air 08/31 2317 98.5 104 18 138/84 93 Room Air Room Air 08/31 1820 98.0 116 16 149/89 92 Room Air Intake & Output 09/01 1600 09/01 0800 09/01 0000 Intake Total 610 Output Total 300 Balance 310 Intake, IV 250 Intake, Oral 360 Output, Urine 300 Patient 92.079 kg 92.079 kg Weight Weight Reported by Patient Measurement Method Physical Exam General Appearance: well developed/nourished, no apparent distress, alert, awake , comfortable Head: atraumatic Eyes: Bilateral: PERRL. Respiratory: normal breath sounds, chest non-tender, crackles, rhonchi Cardiovascular: regular rate/rhythm Gastrointestinal: normal bowel sounds, soft, non-tender Extremities: no edema Neurologic/Psych: awake, alert, oriented x 3 Cranial Nerves: PERRL Lymphatic: no anterior cervical bee Last 48 Hours of Lab Results: Laboratory Tests 09/01 09/01 0620 0043 Chemistry Sodium (137 - 145 mmol/L) 139 Potassium (3.5 - 5.1 mmol/L) 4.6 Chloride (98 - 107 mmol/L) 103 Carbon Dioxide (22 - 30 mmol/L) 27 Anion Gap (5 - 16) 9 BUN (7 - 17 mg/dL) 21 H Creatinine (0.5 - 1.0 mg/dL) 0.5 Estimated GFR (>60 ml/min) > 60 BUN/Creatinine Ratio (7 - 25 %) 42.0 H Lactic Acid Cancelled Hematology CBC w Diff NO MAN DIFF REQ WBC (4.8 - 10.8 /CUMM) 15.1 H RBC (4.20 - 5.40 /CUMM) 3.99 L Hgb (12.0 - 16.0 G/DL) 10.7 L Hct (37 - 47 %) 32.8 L MCV (81.0 - 99.0 FL) 82.3 MCH (27.0 - 31.0 PG) 26.9 L RDW (11.5 - 14.5 %) 17.6 H Plt Count (130 - 400 /CUMM) 338 MPV (7.4 - 10.4 FL) 7.6 Gran % (42.2 - 75.2 %) 75.7 H Lymphocytes % (20.5 - 51.1 %) 16.8 L Monocytes % (1.7 - 9.3 %) 5.0 Eosinophils % (0 - 5 %) 1.9 Basophils % (0.0 - 2.0 %) 0.6 Absolute Granulocytes (1.4 - 6.5 /CUMM) 11.4 H Absolute Lymphocytes (1.2 - 3.4 /CUMM) 2.5 Absolute Monocytes (0.10 - 0.60 /CUMM) 0.8 H Absolute Eosinophils (0.0 - 0.7 /CUMM) 0.3 Absolute Basophils (0.0 - 0.2 /CUMM) 0.1 PUBS MCHC (33.0 - 37.0 G/DL) 32.6 L 08/31 2346 Chemistry Sodium (137 - 145 mmol/L) 139 Potassium (3.5 - 5.1 mmol/L) 5.0 Chloride (98 - 107 mmol/L) 104 Carbon Dioxide (22 - 30 mmol/L) 24 Anion Gap (5 - 16) 10 BUN (7 - 17 mg/dL) 26 H Creatinine (0.5 - 1.0 mg/dL) 0.4 L Estimated GFR (>60 ml/min) > 60 BUN/Creatinine Ratio (7 - 25 %) 65.0 H Glucose (65 - 99 mg/dL) 215 H Lactic Acid (0.7 - 2.1 mmol/L) 0.9 Calcium (8.4 - 10.2 mg/dL) 9.7 Total Bilirubin (0.2 - 1.3 mg/dL) 0.8 AST (14 - 36 U/L) 28 ALT (9 - 52 U/L) 30 Alkaline Phosphatase (<127 U/L) 79 Troponin I (< 0.11 ng/ml) < 0.01 [id number] Pept (<125 pg/mL) 102 Total Protein (6.3 - 8.2 g/dL) 6.9 Albumin (3.5 - 5.0 g/dL) 3.6 Globulin (1.9 - 4.2 gm/dL) 3.3 Albumin/Globulin Ratio (1.1 - 2.2 %) 1.1 Hematology CBC w Diff NO MAN DIFF REQ WBC (4.8 - 10.8 /CUMM) 10.1 RBC (4.20 - 5.40 /CUMM) 4.27 Hgb (12.0 - 16.0 G/DL) 11.2 L Hct (37 - 47 %) 34.6 L MCV (81.0 - 99.0 FL) 81.0 MCH (27.0 - 31.0 PG) 26.1 L RDW (11.5 - 14.5 %) 17.0 H Plt Count (130 - 400 /CUMM) 392 MPV (7.4 - 10.4 FL) 7.4 Gran % (42.2 - 75.2 %) 56.8 Lymphocytes % (20.5 - 51.1 %) 33.1 Monocytes % (1.7 - 9.3 %) 6.9 Eosinophils % (0 - 5 %) 2.5 Basophils % (0.0 - 2.0 %) 0.7 Absolute Granulocytes (1.4 - 6.5 /CUMM) 5.7 Absolute Lymphocytes (1.2 - 3.4 /CUMM) 3.3 Absolute Monocytes (0.10 - 0.60 /CUMM) 0.7 H Absolute Eosinophils (0.0 - 0.7 /CUMM) 0.3 Absolute Basophils (0.0 - 0.2 /CUMM) 0.1 PUBS MCHC (33.0 - 37.0 G/DL) 32.2 L Imaging/Other Studies: CT chest 09/01/2017: Compared to 08/24/2017, there are new patchy nodular foci of consolidation in the lower lobes and medial right lung apex. Findings are consistent with pneumonia. In addition, there are numerable small tree-in-bud nodules scattered throughout both lungs, consistent with infectious bronchiolitis. These findings are not specific for any particular organism. Tree-in-bud nodular opacities can be seen with viral, fungal and bacterial (including mycobacterial) infections. Assessment/Plan Assessment: Ms. Coto is a 71-year-old female with endometrial cancer s/p hysterectomy ( FIGO 1A) and recently primary peritoneal carcinoma s/p carboplatin/paclitaxel ( 08/12) who presented with shortness of breath and cough. She was seen by her primary care and noted to have abnormal lung sounds and was sent to ER for evaluation. Chest x-ray and CT scan are concerning for pneumonia with possible infectious bronchoilitis. She is currently on azithromycin and ceftriaxone. She is feeling a little better. She has no other significant complaint. She will need to follow up as an outpatient to continue therapy. This will likely be after pneumonia treatment. Recommendations: Pneumonia: -continue antibiotics as per primary -may need pulmonary evaluation Primary peritoneal carcinoma: -follow up as outpatient to continue therapy Problem List: 1. Pneumonia 2. Primary peritoneal carcinomatosis 3. Bronchitis Other Findings/Comments: Please call [phone] with any questions or concerns. Consult Acknowledgment - Thank you for your consult request.
--- NOTE | 2017-09-01 13:11 | Admission Certification ---
Admission Certification Certification Statement - As attending physician, I certify that at the time of - admission, based on clinical presentation, severity of - symptoms, need for further diagnostic testing and - therapeutic interventions, and risk of adverse outcomes - without in-hospital treatment, in my clinical assessment, - this patient requires an acute hospital stay for a minimum - of two nights or longer. I have also considered psychsocial - factors such as support system, advanced age, financial - issues, cognitive issues, and failed out-patient treatments, - past re-admission history, safety of patient, and lack of - compliance as applicable. Specific rationale supporting this admission is: Patient with pneumonia, bronchiolitis failed outpatient steroids.
--- NOTE | 2017-09-01 13:13 | PN- Att Addend ---
Attending Addendum Attending Brief Note Patient seen and examined. Patient known to me from previous observation status from August 24-. This patient is an underlying diabetic, former smoker and underlying peritoneal carcinoma actively getting chemotherapy. She had come in with shortness of breath and was brought in observation on August 24, had a CTA which was negative for a PE. At that point her primary issue was shortness of breath and wheezing and there was no suspicion for any bacterial infection. She was discharged on a prednisone taper. She now returns with worsening symptoms and this time the CT chest is showing pneumonia and multiple tree-in- bud opacities suggestive of bronchiolitis. We'll admit her, treat her with IV antibiotics and have pulmonary see her. Watch her sugars closely and follow-up.
--- NOTE | 2017-09-01 14:53 | Cons- Pulmonary ---
General Information and HPI Consulting Request Date of Consult: 09/01/17 Requested By: tania Reason for Consult: Abnormal CAT scan of the chest History of Present Illness: Patient is 71-year-old distant smoker with history of endometrial carcinoma and recently diagnosed adenocarcinoma status post chemotherapy on August 12 admitted because of abnormal exam and hypoxic history failure. Patient presented in mid August with complaints of cough shortness breath was found to be bronchospastic with eosinophilia. CTA was negative and pulmonary parenchyma was unrevealing she was treated with Solu-Medrol tapering dose of prednisone. She had persistent cough without sputum and was seen by her primary care physician yesterday who heard abnormal bilateral lung sounds and recommended reevaluation the emergency department. There she was found to be hypoxic chest x-ray suggested a possible left lower lobe infiltrate. CT scan her chest now shows a dramatic changes with multiple small pulmonary nodules tree-in-bud opacities and lower lobe consolidation associated with leukocytosis.. She is been started on Rocephin and Zithromax. She has no sputum or hemoptysis. Denies chest pain. Allergies/Medications Allergies: Coded Allergies: erythromycin base (UNKNOWN 08/04/17) indomethacin (UNKNOWN 08/04/17) Home Med List: Albuterol Sulfate (Proair Hfa) 90 MCG HFA.AER.AD 2 PUF INH Q4-6 PRN PRN Wheeze /SOB . Aspirin (Aspirin*) 81 MG TAB.CHEW 1 TAB PO DAILY HEART HEALTH (Reported) Celecoxib 200 MG CAPSULE 1 CAP PO DAILY PRN PAIN (Reported) Duloxetine HCl 60 MG CAPSULE.DR 1 CAP PO DAILY ANXIETY (Reported) Fenofibrate,Micronized (Fenofibrate) 134 MG CAPSULE 1 CAP PO DAILY HEART HEALTH (Reported) Gabapentin 300 MG CAPSULE 2 CAP PO BID PAIN CONTROL (Reported) Insulin Detemir (Levemir) 100 UNIT/ML VIAL 45 U SC DAILY DIABETES (Reported) Insulin Detemir (Levemir Flextouch) 100 UNIT/ML (3 ML) INSULN.PEN 48 U SC QPM DIABETES (Reported) Insulin Lispro (Humalog Kwikpen U-100) 100 UNIT/ML INSULN.PEN 8 U SC DAILY DIABETES (Reported) Insulin Lispro (Humalog Kwikpen U-100) 100 UNIT/ML INSULN.PEN 10 U SC QPM DIABETES (Reported) Lisinopril 10 MG TABLET 0.5 TAB PO DAILY HEART (Reported) Metformin HCl 1,000 MG TABLET 1 TAB PO BID DIABETES (Reported) Multivitamin (Daily Janine) 1 EACH TABLET 1 TAB PO DAILY VITAMIN SUPPORT ( Reported) [place]-3 Fatty Acids/Fish Oil (Fish Oil 1,000 MG Capsule) 340 MG-1,000 MG CAPSULE 2 CAP PO BID HEART HEALTH (Reported) Omeprazole 20 MG CAPSULE.DR 1 CAP PO DAILY GI (Reported) Prednisone 10 MG TABLET 1 TAB PO DAILY Shortness of Breath . Prochlorperazine Maleate 10 MG TABLET 1 TAB PO Q6-8P NAUSEA (Reported) Saliva Substitute Combo No.9 (Biotene) 473 ML MOUTHWASH 1 UDC SG TIDPRN PRN PAIN SCALE 4-6 (MODERATE) (Reported) Simvastatin (Simvastatin*) 20 MG TABLET 1 TAB PO QPM CHOLESTEROL (Reported) Tizanidine HCl 2 MG TABLET 1-2 TAB PO TID PRN PAIN (Reported) Tramadol HCl 50 MG TABLET 1-2 TAB PO TIDPRN PRN PAIN (Reported) Turmeric Root Extract (Turmeric) 500 MG CAPSULE 2 CAP PO BID IMMUNE SUPPORT ( Reported) Ursodiol 300 MG CAPSULE 1 CAP PO DAILY GALLSTONE (Reported) Review of Systems Review of Systems Constitutional: Denies: chills, fever. Cardiovascular: Denies: chest pain. Respiratory: Reports: cough, short of breath. Denies: hemoptysis, sputum production, wheezing. GI: Reports: nausea. Denies: abdominal pain, diarrhea. 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 Exam & Diagnostic Data Last 24 Hrs of Vital Signs/I&O Vital Signs Date Time Temp Pulse Resp B/P B/P Pulse O2 O2 Flow FiO2 Mean Ox Delivery Rate 09/01 1040 103 140/70 09/01 0800 93 Nasal 2.0L Cannula 09/01 0324 98.7 103 20 140/70 93 Nasal 2.0L Cannula 09/01 0300 93 Nasal 2.0L Cannula 09/01 0209 97.7 83 20 139/83 92 Room Air 08/31 2317 98.5 104 18 138/84 93 Room Air Room Air 08/31 1820 98.0 116 16 149/89 92 Room Air Intake & Output 09/01 1600 09/01 0800 09/01 0000 Intake Total 610 Output Total 300 Balance 310 Intake, IV 250 Intake, Oral 360 Output, Urine 300 Patient 203 lb 203 lb Weight Weight Reported by Patient Measurement Method Oxygen saturation 2 L 93% HNT exam shows no adenopathy exam for chest shows diffuse crackles bilaterally cardiac exam shows normal S1 and S2 without murmurs abdomen is soft nontender she has no significant lower extremity edema.. Last 48 Hrs of Labs/José Miguel: Laboratory Tests 09/01/17 0620: Anion Gap 9, Estimated GFR > 60, BUN/Creatinine Ratio 42.0 H, CBC w Diff NO MAN DIFF REQ, RBC 3.99 L, MCV 82.3, MCH 26.9 L, RDW 17.6 H, MPV 7.6, Gran % 75.7 H, Lymphocytes % 16.8 L, Monocytes % 5.0, Eosinophils % 1.9, Basophils % 0.6, Absolute Granulocytes 11.4 H, Absolute Lymphocytes 2.5, Absolute Monocytes 0.8 H, Absolute Eosinophils 0.3, Absolute Basophils 0.1, PUBS MCHC 32.6 L 09/01/17 0043: Lactic Acid Cancelled 08/31/17 2346: Anion Gap 10, Estimated GFR > 60, BUN/Creatinine Ratio 65.0 H, Glucose 215 H, Lactic Acid 0.9, Calcium 9.7, Total Bilirubin 0.8, AST 28, ALT 30, Alkaline Phosphatase 79, Troponin I < 0.01, Qbr-E-Tyicmjeolcv Pept 102, Total Protein 6.9 , Albumin 3.6, Globulin 3.3, Albumin/Globulin Ratio 1.1, CBC w Diff NO MAN DIFF REQ, RBC 4.27, MCV 81.0, MCH 26.1 L, RDW 17.0 H, MPV 7.4, Gran % 56.8, Lymphocytes % 33.1, Monocytes % 6.9, Eosinophils % 2.5, Basophils % 0.7, Absolute Granulocytes 5.7, Absolute Lymphocytes 3.3, Absolute Monocytes 0.7 H, Absolute Eosinophils 0.3, Absolute Basophils 0.1, PUBS MCHC 32.2 L Microbiology 09/01 645 URINE ROUT: Legionella Antigen - COMP 09/01 645 URINE ROUT: Streptococcus pneumoniae Antigen (M - COMP 09/01 0010 NASOPHARYN: Influenza Virus A & B Rapid Smear - COMP Assessment/Plan Impression/Plan: 71-year-old woman with endometrial carcinoma status post chemotherapy on August 12 recent unremarkable imaging on August 24 admitted with hypoxic respiratory failure abnormal pulmonary exam and now CT scan with impressive pulmonary nodules tree-in-bud opacities and areas of consolidation without pleural fluid. The rapidity with which this developed suggest an infectious process in a immunocompromised host having a malignancy chemotherapy and recent steroids. Radiographic picture would be atypical for tumor emboli Recommendations: Aggressive pulmonary toilet and induce sputum for routine AFB and fungal cultures. Taper FiO2 his saturations allow. Continue antibiotics as ordered. At this point does not appear to be a need for steroids. If she fails to improve or repiratory status worsens bronchoalveolar lavage for cultures might be necessary in view of her immunocompromised state Consult Acknowledgment - Thank you for your consult request.
[2017-09-01 15:08] VITALS: BP 132/60
[2017-09-01 22:52] VITALS: BP 170/70
[2017-09-02 06:30] VITALS: BP 136/70
--- NOTE | 2017-09-02 07:10 | PN- Housestaff ---
See Addendum Subjective Follow-up For: pneumonia Subjective: feeling better in terms of her symptoms of dyspnea encouraged ambulation no fevers or chills persistent cough but unable to expectorate Review of Systems Constitutional: Reports: see HPI. Objective Last 24 Hrs of Vital Signs/I&O Vital Signs Date Time Temp Pulse Resp B/P B/P Pulse O2 O2 Flow FiO2 Mean Ox Delivery Rate 09/02 0630 98.6 60 20 136/70 92 Nasal Cannula 09/02 0000 94 Nasal 2.0L Cannula 09/01 2252 98.8 74 20 170/70 92 Nasal 2.0L Cannula 09/01 1508 98.5 98 20 132/60 92 Nasal 2.0L Cannula 09/01 1040 103 140/70 Intake & Output 09/02 1600 09/02 0800 09/02 0000 Intake Total 50 360 Output Total Balance 50 360 Intake, IV 260 Intake, Oral 50 100 Patient 92.079 kg Weight Physical Exam General Appearance: Alert, Oriented X3, Cooperative, No Acute Distress Cardiovascular: Regular Rate, Normal S1, Normal S2, No Murmurs, right chest wall port, no erythema Lungs: bibasilar crackles Abdomen: Normal Bowel Sounds, Soft, No Tenderness, No Masses Extremities: No Clubbing, No Cyanosis, No Edema, Normal Pulses Current Medications: Current Medications Sig/Kwasi Start time Last Medication Dose Route Stop Time Status Admin Acetaminophen 650 MG Q8P PRN 09/01 0315 AC PO Albuterol Sulfate 2 PUF Q4-6 PRN PRN 09/01 0400 AC INH Aspirin 81 MG DAILY 09/01 1000 AC 09/01 PO 1040 Atorvastatin Calcium 10 MG 1700 09/01 1700 DC PO Atorvastatin Calcium 5 MG 1700 09/01 1700 AC 09/01 PO 2137 Azithromycin 500 MG 0 09/01 2200 AC 09/01 Sodium Chloride 250 ML IV 2141 Ceftriaxone Sodium 1,000 MG 0 09/01 2200 AC 09/01 IV 2137 Duloxetine HCl 60 MG DAILY 09/01 1000 AC 09/01 PO 1040 Fenofibrate 145 MG DAILY 09/01 1000 AC 09/01 PO 1040 Gabapentin 600 MG BID 09/01 1000 AC 09/01 PO 2136 Guaifenesin 600 MG Q12 09/01 1353 AC 09/01 PO 2138 Heparin Sodium 5,000 UNIT Q8 09/01 0600 AC 09/02 (Porcine) SC 0628 Insulin Aspart 0 TIDAC 09/01 0800 AC 09/01 SC 1728 Insulin Detemir 25 UNITS BID 09/01 1000 AC 09/01 SC 2127 Lisinopril 5 MG DAILY 09/01 1000 AC 09/01 PO 1040 Morphine Sulfate 2 MG Q8P PRN 09/01 0315 AC IV Omeprazole 20 MG DAILY 09/01 1000 AC 09/01 PO 1040 Ondansetron HCl 4 MG ONCE ONE 09/01 2230 DC 09/01 IV 09/01 2231 2227 Tizanidine HCl 2 MG TID PRN 09/01 0415 AC PO Tramadol HCl 50 MG TIDPRN PRN 09/01 0415 AC 09/02 PO 0659 Last 24 Hrs of Lab/José Miguel Results Last 24 Hrs of Labs/Mics: Laboratory Tests 09/02/17 0735: Sodium Pending, Potassium Pending, Chloride Pending, Carbon Dioxide Pending, Anion Gap Pending, BUN Pending, Creatinine Pending, BUN/Creatinine Ratio Pending , CBC w Diff Pending, WBC Pending, RBC Pending, Hgb Pending, Hct Pending, MCV Pending, MCH Pending, RDW Pending, Plt Count Pending, MPV Pending, PUBS MCHC Pending Microbiology 09/01 1548 LOWER RESP: AFB Culture with PCR Identification - COLB 09/01 1548 LOWER RESP: AFB Smear Concentration - COLB 09/01 154 LOWER RESP: Routine Culture - COLB Assessment/Plan Assessment: 71 year old female with past medical history significant for diabetes, HTN, endometrial cancer s/p MALINI/BSO in 2016 and primary peritoneal carcinoma recently diagnosed in on chemotherapy with carboplatin and taxel last treatment 08/12 and recently at [facility] for observation with respiratory complaints and was diagnosed viral bronchitis treated with steroid taper and monitored off antibioticspresents with complaints of progressive dyspnea and cough. Acute hypoxemic respiratory failure: secondary to community acquired pneumonia: Patient was hypoxic in ED, Spo2 89% on room air, afebrile, leukocytosis 15,000 no bands Chest x-ray showed an opacity in the left lower lobe suspiscious for developing pneumonia Continue ceftriaxone and azithromycin for community acquired pneumonia Chest CT without IV contrast New patchy nodular foci of consolidation in the lower lobes and medial right lung apex. Numerable small tree-in-bud nodules scattered throughout both lungs, Findings consistent with infectious bronchiolitis/pneumonia Influenza negative, legionella and strep pneumo urinary antigens negative Induce sputum culture for bacteria, AFB, and fungal ProBNP negative for congestive heart failure-cardiogenic pulmonary edema TRC evaluation Continue mucinex 600mg PO BID Diabetes: Accuchecks TIDAC, glucose 120-200 Novolog sliding scale insulin increased Levemir 25 units BID Check hemoglobin A1C Hypertension: Continue lisinopril Diabetic diet DVT ppx-heparin 5000 units subcutaneous Q8H Full code Problem List: 1. Pneumonia 2. Hypoxia 3. Primary peritoneal carcinomatosis 4. Dyspnea Pain Ratin Pain Location: n/a Pain Goal: Pain 4 or less Pain Plan: prn Tomorrow's Labs & Rationales: cbc, bep
--- NOTE | 2017-09-02 08:04 | Discharge Summary ---
Visit Information Visit Dates Admission Date: 09/01/17 Discharge Date: 09/04/17 Hospital Course Course Attending Physician: Joslyn SAM,Beverly Kolb Primary Care Physician: Keshia BAILEY,Saud Aguilar Consulting Request: Consulting Specialty: Pulmonary Disease Hospital Course: 71-year-old female past medical history of peritoneal carcinoma actively getting chemotherapy, has a right chest wall port and was recently in observation status from August 24-. On that admission she had a CTA that was negative for pneumonia and she was treated for bronchospasm with a short course of prednisone. She was sent back in when she was noted at the PCPs office to have fine crackles. When she came in this time she had an elevated white count with a left shift, still coughing with difficulty producing sputum and this time the CT chest showed opacities suggestive of community-acquired pneumonia and infectious bronchiolitis. We called pulmonary to see her given the diffuse opacities to make sure we were not dealing with any atypical or opportunistic infection given her immunosuppressed status. We treated her with IV ceftriaxone and azithromycin. And she improved in terms of white count and symptoms. Dr. Rueda followed her through her entire course. Dr. Mckeon the oncologist also continued to follow her. She couldn't produce any sputum for us. We were able to taper off oxygen and she was stable to be discharged with outpatient follow-up. Allergies: Coded Allergies: erythromycin base (UNKNOWN 08/04/17) indomethacin (UNKNOWN 08/04/17) Disposition Summary Disposition Principal Diagnosis: CAP, infectious bronchiolitis Additional Diagnosis: Peritoneal Ca DM Discharge Disposition: home health services Discharge Instructions General Discharge Information Code Status: Full Code Patient's Diet: Diabetic heart healthy diet Patient's Activity: Ad juno. Follow-Up Instructions/Appts: Please follow-up with Dr. Herrera. You need a repeat CT scan in 4-6 weeks of your chest to ensure radiographic resolution Medications at Discharge Discharge Medications: Stop taking the following medications: Prednisone (Prednisone) 10 MG TABLET ORAL DAILY Qty = 6 Continue taking these medications: Multivitamin (Daily Janine) 1 EACH TABLET 1 Tablet ORAL DAILY Comments: NOT GIVEN IN HOSPITAL Tramadol HCl (Tramadol HCl) 50 MG TABLET 1-2 Tablet ORAL THREE TIMES A DAY NEEDED as needed for PAIN Qty = 120 Comments: Last Taken: 09/04/17 Time: 8AM Ursodiol (Ursodiol) 300 MG CAPSULE 1 Capsule ORAL DAILY Qty = 90 Comments: DID NOT ADMINISTER IN HOSPITAL Aspirin (Aspirin*) 81 MG TAB.CHEW 1 Tablet ORAL DAILY Comments: Last Taken: 09/04/17 Time: 0815AM Celecoxib (Celecoxib) 200 MG CAPSULE 1 Capsule ORAL DAILY as needed for PAIN Qty = 90 Comments: NOT GIVEN IN HOSPITAL Omeprazole (Omeprazole) 20 MG CAPSULE.DR 1 Capsule ORAL DAILY Comments: Last Taken: 09/04/17 Time: 8AM Duloxetine HCl (Duloxetine HCl) 60 MG CAPSULE.DR 1 Capsule ORAL DAILY Qty = 90 Comments: Last Taken: 09/04/17 Time: 0800 AM Lisinopril (Lisinopril) 10 MG TABLET 0.5 Tablet ORAL DAILY Qty = 45 Comments: Last Taken: 09/04/17 Time: 8AM Simvastatin (Simvastatin*) 20 MG TABLET 1 Tablet ORAL Every night Qty = 90 Comments: Last Taken: 09/03/17 Time: 4 PM Gabapentin (Gabapentin) 300 MG CAPSULE 2 Capsule ORAL TWICE DAILY Qty = 540 Comments: Last Taken: 09/04/17 Time: 8AM Metformin HCl (Metformin HCl) 1,000 MG TABLET 1 Tablet ORAL TWICE DAILY Qty = 180 Comments: NOT GIVEN IN HOSPITAL Insulin Detemir (Levemir Flextouch) 100 UNIT/ML (3 ML) INSULN.PEN 45 Units Inject into fatty tissue TWICE DAILY Comments: Last Taken: 09/04/17 Time: 8AM 25 UNITS LEVEMIR Insulin Lispro (Humalog Kwikpen U-100) 100 UNIT/ML INSULN.PEN 8 Units Inject into fatty tissue DAILY Qty = 15 Comments: NOVOLOG ADMINISTERED Last Taken: 09/03/17 Time: 5PM Insulin Lispro (Humalog Kwikpen U-100) 100 UNIT/ML INSULN.PEN 10 Units Inject into fatty tissue Every night Comments: NOVOLOG ADMINISTERED Last Taken: 09/03/17 Time: 5PM [place]-3 Fatty Acids/Fish Oil (Fish Oil 1,000 MG Capsule) 340 MG-1,000 MG CAPSULE 2 Capsule ORAL TWICE DAILY Comments: NOT GIVEN IN HOSPITAL Tizanidine HCl (Tizanidine HCl) 2 MG TABLET 1-2 Tablet ORAL THREE TIMES DAILY as needed for PAIN Qty = 180 Comments: NOT GIVEN IN HOSPITAL Albuterol Sulfate (Proair Hfa) 90 MCG HFA.AER.AD 2 Puff Inhale through mouth EVERY 4-6 HOURS NEEDED as needed for Wheeze/ SOB Qty = 1 Instructions: . Comments: NOT GIVEN IN HOSPITAL Saliva Substitute Combo No.9 (Biotene) 473 ML MOUTHWASH 1 Unit Dose Cup Gingival THREE TIMES A DAY NEEDED as needed for PAIN SCALE 4-6 (MODERATE) Qty = 473 Comments: DID NOT ADMINISTER Prochlorperazine Maleate (Prochlorperazine Maleate) 10 MG TABLET 1 Tablet ORAL Every 6-8 Hours as Needed Qty = 60 Comments: NOT GIVEN IN HOSPITAL Fenofibrate,Micronized (Fenofibrate) 134 MG CAPSULE 1 Capsule ORAL DAILY Qty = 90 Comments: Last Taken: 09/04/17 Time: 0800 AM Turmeric Root Extract (Turmeric) 500 MG CAPSULE 2 Capsule ORAL TWICE DAILY Comments: DID NOT ADMINISTER IN HOSPITAL Start taking the following new medications: Azithromycin (Zithromax) 500 MG TABLET 1 Tablet ORAL DAILY Qty = 2 No Refills Instructions: . Comments: IV FORM ADMINISTERED Copies To: Keshia BAILEY,Saud Aguilar; Linda SAM,Tulio
--- NOTE | 2017-09-02 08:13 | PN- Oncology ---
Subjective Subjective: She feels better today. She does ambulate to the bathroom and back. She denies any fever or chills. She denies any nausea or vomiting. She has no new pain. Review of Systems Constitutional: Denies: chills, fever. Cardiovascular: Denies: chest pain. Respiratory: Reports: cough (non-productive), short of breath. Gastrointestinal: Denies: abdominal pain, constipation. Musculoskeletal: Denies: back pain. Neurological/Psychological: Denies: anxiety. All Other Systems: Reviewed and Negative Objective Vital Signs and I&Os Vital Signs Date Time Temp Pulse Resp B/P B/P Pulse O2 O2 Flow FiO2 Mean Ox Delivery Rate 09/02 0630 98.6 60 20 136/70 92 Nasal Cannula 09/02 0000 94 Nasal 2.0L Cannula 09/01 2252 98.8 74 20 170/70 92 Nasal 2.0L Cannula 09/01 1508 98.5 98 20 132/60 92 Nasal 2.0L Cannula 09/01 1040 103 140/70 Intake & Output 09/02 1600 09/02 0800 09/02 0000 09/01 1600 09/01 0800 09/01 0000 Intake Total 50 360 480 610 Output Total 500 300 Balance 50 360 -20 310 Intake, IV 260 250 Intake, Oral 50 100 480 360 Number 0 Bowel Movements Output, Urine 500 300 Patient 92.079 kg 92.079 kg 92.079 kg Weight Weight Reported by Patient Measurement Method Physical Exam: General Appearance: well developed/nourished, no apparent distress, alert, awake , comfortable Head: atraumatic Respiratory: normal breath sounds, chest non-tender, crackles, rhonchi Cardiovascular: regular rate/rhythm Gastrointestinal: normal bowel sounds, soft, non-tender Extremities: no edema Neurologic/Psych: awake, alert, oriented x 3 Lymphatic: no anterior cervical bee Current Medications: Current Medications Sig/Kwasi Start time Last Medication Dose Route Stop Time Status Admin Acetaminophen 650 MG Q8P PRN 09/01 0315 AC PO Albuterol Sulfate 2 PUF Q4-6 PRN PRN 09/01 0400 AC INH Aspirin 81 MG DAILY 09/01 1000 AC 09/01 PO 1040 Atorvastatin Calcium 10 MG 1700 09/01 1700 DC PO Atorvastatin Calcium 5 MG 1700 09/01 1700 AC 09/01 PO 2137 Azithromycin 500 MG 0 09/01 2200 AC 09/01 Sodium Chloride 250 ML IV 2141 Ceftriaxone Sodium 1,000 MG 2200 09/01 2200 AC 09/01 IV 2137 Duloxetine HCl 60 MG DAILY 09/01 1000 AC 09/01 PO 1040 Fenofibrate 145 MG DAILY 09/01 1000 AC 09/01 PO 1040 Gabapentin 600 MG BID 09/01 1000 AC 09/01 PO 2136 Guaifenesin 600 MG Q12 09/01 1353 AC 09/01 PO 2138 Heparin Sodium 5,000 UNIT Q8 09/01 0600 AC 09/02 (Porcine) SC 0628 Insulin Aspart 0 TIDAC 09/01 0800 AC 09/01 SC 1728 Insulin Detemir 25 UNITS BID 09/01 1000 AC 09/01 SC 2127 Lisinopril 5 MG DAILY 09/01 1000 AC 09/01 PO 1040 Morphine Sulfate 2 MG Q8P PRN 09/01 0315 AC IV Omeprazole 20 MG DAILY 09/01 1000 AC 09/01 PO 1040 Ondansetron HCl 4 MG ONCE ONE 09/01 2230 DC 09/01 IV 09/01 2231 2227 Tizanidine HCl 2 MG TID PRN 09/01 0415 AC PO Tramadol HCl 50 MG TIDPRN PRN 09/01 0415 AC 09/02 PO 0659 Results Last 24 Hours of Lab Results: Laboratory Tests 09/02 0735 Chemistry Sodium Pending Potassium Pending Chloride Pending Carbon Dioxide Pending Anion Gap Pending BUN Pending Creatinine Pending BUN/Creatinine Ratio Pending Hematology CBC w Diff Pending WBC Pending RBC Pending Hgb Pending Hct Pending MCV Pending MCH Pending RDW Pending Plt Count Pending MPV Pending PUBS MCHC Pending Assessment/Plan Assessment/Recommendations: Ms. Coto is a 71-year-old female with endometrial cancer s/p hysterectomy ( FIGO 1A) and recently primary peritoneal carcinoma s/p carboplatin/paclitaxel ( 08/12) who presented with shortness of breath and cough. She was seen by her primary care and noted to have abnormal lung sounds and was sent to ER for evaluation. Chest x-ray and CT scan are concerning for pneumonia with possible infectious bronchoilitis. She is currently on azithromycin and ceftriaxone. Pulmonary is follow patient. She is trying to produce sputum for sampling. She is doing relatively better otherwise. Pneumonia: -continue antibiotics as per primary -pulmonary following -OOB -incentive spirometry Primary peritoneal carcinoma: -follow up as outpatient to continue therapy Please call [phone] with any questions/concerns. Problem List: 1. Primary peritoneal carcinomatosis 2. Pneumonia 3. Bronchitis
[2017-09-02 09:46] LABS: ABSOLUTE BASOPHIL COUNT 0.1 /CUMM (0.0-0.2); ABSOLUTE EOSINOPHIL COUNT 0.2 /CUMM (0.0-0.7); ABSOLUTE LYMPH COUNT 2.3 /CUMM (1.2-3.4); ABSOLUTE MONOCYTE COUNT 0.8 /CUMM (0.10-0.60); BASOPHIL % 0.8 % (0.0-2.0); GRANULOCYTE % 63.9 % (42.2-75.2); HEMATOCRIT 32.7 % (37-47); MEAN CORPUSCULAR HGB 26.7 PG (27.0-31.0); MEAN CORPUSCULAR HGB CONC 32.6 G/DL (33.0-37.0); MEAN PLATELET VOLUME 7.8 FL (7.4-10.4); PLATELET COUNT 293 /CUMM (130-400); RBC DISTRIBUTION WIDTH 18.2 % (11.5-14.5); RED BLOOD CELL CT 3.99 /CUMM (4.20-5.40); WHITE BLOOD CELL COUNT 9.4 /CUMM (4.8-10.8)
--- NOTE | 2017-09-02 10:50 | PN- Pulmonary ---
Subjective HPI/Critical Care Issues: She feels better. She denies shortness of breath or chest pain. Unfortunately unable to expectorate sputum Objective Current Medications: Current Medications Sig/Kwasi Start time Last Medication Dose Route Stop Time Status Admin Acetaminophen 650 MG Q8P PRN 09/01 0315 AC PO Albuterol Sulfate 2 PUF Q4-6 PRN PRN 09/01 0400 AC INH Aspirin 81 MG DAILY 09/01 1000 AC 09/02 PO 0857 Atorvastatin Calcium 10 MG 1700 09/01 1700 DC PO Atorvastatin Calcium 5 MG 1700 09/01 1700 AC 09/01 PO 2137 Azithromycin 500 MG 2200 09/01 2200 AC 09/01 Sodium Chloride 250 ML IV 2141 Ceftriaxone Sodium 1,000 MG 2200 09/01 2200 AC 09/01 IV 2137 Duloxetine HCl 60 MG DAILY 09/01 1000 AC 09/02 PO 0857 Fenofibrate 145 MG DAILY 09/01 1000 AC 09/02 PO 0856 Gabapentin 600 MG BID 09/01 1000 AC 09/02 PO 0857 Guaifenesin 600 MG Q12 09/01 1353 AC 09/02 PO 0857 Heparin Sodium 5,000 UNIT Q8 09/01 0600 AC 09/02 (Porcine) SC 0628 Ibuprofen 600 MG Q8 09/02 0900 AC PO 09/02 2201 Insulin Aspart 0 TIDAC 09/01 0800 AC 09/02 SC 0856 Insulin Detemir 25 UNITS BID 09/01 1000 AC 09/02 SC 0856 Lisinopril 5 MG DAILY 09/01 1000 AC 09/02 PO 0856 Morphine Sulfate 2 MG Q8P PRN 09/01 0315 AC IV Omeprazole 20 MG DAILY 09/01 1000 AC 09/02 PO 0857 Ondansetron HCl 4 MG ONCE ONE 09/01 2230 DC 09/01 IV 09/01 2231 2227 Tizanidine HCl 2 MG TID PRN 09/01 0415 AC PO Tramadol HCl 50 MG TIDPRN PRN 09/01 0415 AC 09/02 PO 0659 Vital Signs & I&O Last 24 Hrs of Vitals and I&O: Vital Signs Date Time Temp Pulse Resp B/P B/P Pulse O2 O2 Flow FiO2 Mean Ox Delivery Rate 09/02 0856 60 136/70 09/02 0630 98.6 60 20 136/70 92 Nasal Cannula 09/02 0000 94 Nasal 2.0L Cannula 09/01 2252 98.8 74 20 170/70 92 Nasal 2.0L Cannula 09/01 1508 98.5 98 20 132/60 92 Nasal 2.0L Cannula Intake & Output 09/02 1600 09/02 0800 09/02 0000 Intake Total 50 360 Output Total Balance 50 360 Intake, IV 260 Intake, Oral 50 100 Patient 203 lb Weight Oxygen saturation 2 L 92-94% exam of her chest continues to crackles are no wheezes cardiac exam shows regular S1 and S2 without murmur white count has now normalized Impression/Plan Impression/Plan Impression/Plan: 71-year-old woman with endometrial carcinoma status post chemotherapy on August 12 recent unremarkable imaging on August 24 admitted with hypoxic respiratory failure abnormal pulmonary exam and now CT scan with impressive pulmonary nodules tree-in-bud opacities and areas of consolidation without pleural fluid. The rapidity with which this developed suggest an infectious process in a immunocompromised host having a malignancy chemotherapy and recent steroids. Radiographic picture would be atypical for tumor emboli patient is clinically improved after antibiotics Recommendations: Aggressive pulmonary toilet and induce sputum for routine AFB and fungal cultures. Taper FiO2 his saturations allow. Continue antibiotics as ordered. At this point does not appear to be a need for steroids. If she fails to improve or repiratory status worsens bronchoalveolar lavage for cultures might be necessary in view of her immunocompromised state continue antibiotics and aggressive pulmonary toilet
[2017-09-02 14:01] VITALS: BP 138/60
[2017-09-02 22:37] VITALS: BP 120/54
[2017-09-03 06:46] VITALS: BP 132/84
--- NOTE | 2017-09-03 07:29 | PN- Housestaff ---
See Addendum Subjective Follow-up For: pneumonia Subjective: feeling better this morning still persistent nonproductive cough unable to produce sputum culture specimen remains on 1L supplemental oxygen ambulating Review of Systems Constitutional: Reports: see HPI. Objective Last 24 Hrs of Vital Signs/I&O Vital Signs Date Time Temp Pulse Resp B/P B/P Pulse O2 O2 Flow FiO2 Mean Ox Delivery Rate 09/03 0646 97.7 93 20 132/84 94 Nasal 1.0L Cannula 09/03 0000 Nasal 1.0L Cannula 09/02 2237 98.4 90 20 120/54 100 Nasal Cannula 09/02 2140 93 Nasal 1.0L Cannula 09/02 1401 97.6 100 20 138/60 92 Nasal 1.0L Cannula 09/02 1121 Nasal 1.0L Cannula 09/02 0856 60 136/70 Intake & Output 09/03 1600 09/03 0800 09/03 0000 Intake Total 440 440 Output Total Balance 440 440 Intake, IV 200 200 Intake, Oral 240 240 Physical Exam General Appearance: Alert, Oriented X3, Cooperative, No Acute Distress Cardiovascular: Regular Rate, Normal S1, Normal S2, No Murmurs, right chest wall port, no erythema Lungs: scattered rhonchi, bibasilar crackles Abdomen: Normal Bowel Sounds, Soft, No Tenderness, No Masses Extremities: No Clubbing, No Cyanosis, No Edema, Normal Pulses Current Medications: Current Medications Sig/Kwasi Start time Last Medication Dose Route Stop Time Status Admin Acetaminophen 650 MG Q8P PRN 09/01 0315 AC PO Albuterol Sulfate 3 ML BID 09/02 1130 AC 09/02 INH 2136 Albuterol Sulfate 2 PUF Q4-6 PRN PRN 09/01 0400 AC INH Aspirin 81 MG DAILY 09/01 1000 AC 09/02 PO 0857 Atorvastatin Calcium 5 MG 1700 09/01 1700 AC 09/02 PO 1646 Azithromycin 500 MG 2200 09/01 2200 AC 09/02 Sodium Chloride 250 ML IV 2219 Ceftriaxone Sodium 1,000 MG 0 09/01 2200 AC 09/02 IV 2218 Duloxetine HCl 60 MG DAILY 09/01 1000 AC 09/02 PO 0857 Fenofibrate 145 MG DAILY 09/01 1000 AC 09/02 PO 0856 Gabapentin 600 MG BID 09/01 1000 AC 09/02 PO 2218 Guaifenesin 600 MG Q12 09/01 1353 AC 09/02 PO 2218 Heparin Sodium 5,000 UNIT Q8 09/01 0600 AC 09/03 (Porcine) SC 0530 Ibuprofen 600 MG Q8 09/02 0900 DC 09/02 PO 09/02 2201 2218 Insulin Aspart 0 TIDAC 09/01 0800 AC 09/02 SC 1717 Insulin Detemir 25 UNITS BID 09/01 1000 AC 09/02 SC 2218 Lisinopril 5 MG DAILY 09/01 1000 AC 09/02 PO 0856 Morphine Sulfate 2 MG Q8P PRN 09/01 0315 AC IV Omeprazole 20 MG DAILY 09/01 1000 AC 09/02 PO 0857 Ondansetron HCl 4 MG Q6P PRN 09/03 0745 AC IV Ondansetron HCl 4 MG ONCE ONE 09/02 2215 DC 09/02 IV 09/02 221 2219 Tizanidine HCl 2 MG TID PRN 09/01 0415 AC PO Tramadol HCl 50 MG TIDPRN PRN 09/01 0415 AC 09/03 PO 0530 Last 24 Hrs of Lab/José Miguel Results Last 24 Hrs of Labs/Mics: Microbiology 09/03 07 LOWER RESP: AFB Culture with PCR Identification - COLB 09/03 07 LOWER RESP: AFB Smear Concentration - COLB 09/03 700 LOWER RESP: Routine Culture - COLB 09/03 700 LOWER RESP: Respiratory Culture - COLB 09/03 700 LOWER RESP: Gram Stain - COLB Assessment/Plan Assessment: 71 year old female with past medical history significant for diabetes, HTN, endometrial cancer s/p MALINI/BSO in 2016 and primary peritoneal carcinoma recently diagnosed in [facility] on chemotherapy with carboplatin and taxel last treatment 08/12 and recently at [facility] for observation with respiratory complaints and was diagnosed viral bronchitis treated with steroid taper and monitored off antibioticspresents with complaints of progressive dyspnea and cough. Acute hypoxemic respiratory failure: secondary to community acquired pneumonia: Patient was hypoxic in ED, afebrile, leukocytosis resolved Continue ceftriaxone and azithromycin for community acquired pneumonia Chest CT without IV contrast New patchy nodular foci of consolidation in the lower lobes and medial right lung apex. Numerable small tree-in-bud nodules scattered throughout both lungs, Findings consistent with infectious bronchiolitis/pneumonia Influenza negative, legionella and strep pneumo urinary antigens negative Induce sputum culture for bacteria, AFB, and fungal cultures TRC evaluation, nebulized albuterol Continue mucinex 600mg PO BID Diabetes: Accuchecks TIDAC, glucose 110-240 Novolog sliding scale insulin Levemir 25 units BID Diabetic diet Hypertension: Continue lisinopril Primary peritoneal carcinoma: Outpatient follow up with oncology Diabetic diet DVT ppx-heparin 5000 units subcutaneous Q8H Full code Problem List: 1. Dyspnea 2. Primary peritoneal carcinomatosis 3. Pneumonia 4. Hypoxia Pain Ratin Pain Location: n/a Pain Goal: Pain 4 or less Pain Plan: prn Tomorrow's Labs & Rationales: none
--- NOTE | 2017-09-03 07:54 | PN- Oncology ---
Subjective Subjective: She feels better. Breathing has improved. She was able to walk around to the [facility] yesterday. She has no fever or chills. She has no nausea or vomiting. She has no chest pain. Review of Systems Constitutional: Reports: weakness. Denies: chills, fever. Cardiovascular: Denies: chest pain. Respiratory: Reports: cough, short of breath. Gastrointestinal: Denies: abdominal pain. Musculoskeletal: Denies: back pain. Neurological/Psychological: Denies: anxiety, depressed. Hematologic/Endocrine: Denies: bruising, bleeding. All Other Systems: Reviewed and Negative Objective Vital Signs and I&Os Vital Signs Date Time Temp Pulse Resp B/P B/P Pulse O2 O2 Flow FiO2 Mean Ox Delivery Rate 09/03 0646 97.7 93 20 132/84 94 Nasal 1.0L Cannula 09/03 0000 Nasal 1.0L Cannula 09/02 2237 98.4 90 20 120/54 100 Nasal Cannula 09/02 2140 93 Nasal 1.0L Cannula 09/02 1401 97.6 100 20 138/60 92 Nasal 1.0L Cannula 09/02 1121 Nasal 1.0L Cannula 09/02 0856 60 136/70 09/02 0800 Nasal 2.0L Cannula Intake & Output 09/03 0800 09/03 0000 09/02 1600 09/02 0800 09/02 0000 09/01 1600 Intake Total 440 440 720 50 360 480 Output Total 500 Balance 440 440 720 50 360 -20 Intake, IV 200 200 260 Intake, Oral 240 240 720 50 100 480 Number 0 0 Bowel Movements Output, Urine 500 Patient 92.079 kg Weight Physical Exam General Appearance: no apparent distress, alert, awake, comfortable Head: atraumatic Neck: supple Respiratory: chest non-tender, no respiratory distress, decreased breath sounds, crackles, on 3L NC Cardiovascular: regular rate/rhythm Abdomen: normal bowel sounds, soft, non-tender Extremities: no edema Neurologic/Psychiatric: awake, alert, oriented x 3 Lymphatic: no anterior cervical bee Current Medications: Current Medications Sig/Kwasi Start time Last Medication Dose Route Stop Time Status Admin Acetaminophen 650 MG Q8P PRN 09/01 0315 AC PO Albuterol Sulfate 3 ML BID 09/02 1130 AC 09/02 INH 2136 Albuterol Sulfate 2 PUF Q4-6 PRN PRN 09/01 0400 AC INH Aspirin 81 MG DAILY 09/01 1000 AC 09/02 PO 0857 Atorvastatin Calcium 5 MG 1700 09/01 1700 AC 09/02 PO 1646 Azithromycin 500 MG 2200 09/01 2200 AC 09/02 Sodium Chloride 250 ML IV 2219 Ceftriaxone Sodium 1,000 MG 2200 09/01 2200 AC 09/02 IV 2218 Duloxetine HCl 60 MG DAILY 09/01 1000 AC 09/02 PO 0857 Fenofibrate 145 MG DAILY 09/01 1000 AC 09/02 PO 0856 Gabapentin 600 MG BID 09/01 1000 AC 09/02 PO 2218 Guaifenesin 600 MG Q12 09/01 1353 AC 09/02 PO 2218 Heparin Sodium 5,000 UNIT Q8 09/01 0600 AC 09/03 (Porcine) SC 0530 Ibuprofen 600 MG Q8 09/02 0900 DC 09/02 PO 09/02 2201 2218 Insulin Aspart 0 TIDAC 09/01 0800 AC 09/02 SC 1717 Insulin Detemir 25 UNITS BID 09/01 1000 AC 09/02 SC 2218 Lisinopril 5 MG DAILY 09/01 1000 AC 09/02 PO 0856 Morphine Sulfate 2 MG Q8P PRN 09/01 0315 AC IV Omeprazole 20 MG DAILY 09/01 1000 AC 09/02 PO 0857 Ondansetron HCl 4 MG Q6P PRN 09/03 0745 AC IV Ondansetron HCl 4 MG ONCE ONE 09/02 2215 DC 09/02 IV 09/02 2216 2219 Tizanidine HCl 2 MG TID PRN 09/01 0415 AC PO Tramadol HCl 50 MG TIDPRN PRN 09/01 0415 AC 09/03 PO 0530 Assessment/Plan Assessment/Recommendations: Ms. Coto is a 71-year-old female with endometrial cancer s/p hysterectomy ( FIGO 1A) and recently primary peritoneal carcinoma s/p carboplatin/paclitaxel ( 08/12) who presented with shortness of breath and cough. She was seen by her primary care and noted to have abnormal lung sounds and was sent to ER for evaluation. Chest x-ray and CT scan are concerning for pneumonia with possible infectious bronchoilitis. She is currently on azithromycin and ceftriaxone. Pulmonary is follow patient. Clinically, she is improving. She has no significant changes. Chemotherapy will likely be delayed until respiratory status improves. Pneumonia: -continue antibiotics as per primary -pulmonary following Primary peritoneal carcinoma: -follow up as outpatient to continue therapy Please call [phone] with any questions/concerns. Problem List: 1. Primary peritoneal carcinomatosis 2. Pneumonia
--- NOTE | 2017-09-03 08:20 | PN- Pulmonary ---
Subjective HPI/Critical Care Issues: Patient continues to feel improved. Objective Current Medications: Current Medications Sig/Kwasi Start time Last Medication Dose Route Stop Time Status Admin Acetaminophen 650 MG Q8P PRN 09/01 0315 AC PO Albuterol Sulfate 3 ML BID 09/02 1130 AC 09/02 INH 2136 Albuterol Sulfate 2 PUF Q4-6 PRN PRN 09/01 0400 AC INH Aspirin 81 MG DAILY 09/01 1000 AC 09/02 PO 0857 Atorvastatin Calcium 5 MG 1700 09/01 1700 AC 09/02 PO 1646 Azithromycin 500 MG 2200 09/01 2200 AC 09/02 Sodium Chloride 250 ML IV 2219 Ceftriaxone Sodium 1,000 MG 2200 09/01 2200 AC 09/02 IV 2218 Duloxetine HCl 60 MG DAILY 09/01 1000 AC 09/02 PO 0857 Fenofibrate 145 MG DAILY 09/01 1000 AC 09/02 PO 0856 Gabapentin 600 MG BID 09/01 1000 AC 09/02 PO 2218 Guaifenesin 600 MG Q12 09/01 1353 AC 09/02 PO 2218 Heparin Sodium 5,000 UNIT Q8 09/01 0600 AC 09/03 (Porcine) SC 0530 Ibuprofen 600 MG Q8 09/02 0900 DC 09/02 PO 09/02 2201 2218 Insulin Aspart 0 TIDAC 09/01 0800 AC 09/02 SC 1717 Insulin Detemir 25 UNITS BID 09/01 1000 AC 09/02 SC 2218 Lisinopril 5 MG DAILY 09/01 1000 AC 09/02 PO 0856 Morphine Sulfate 2 MG Q8P PRN 09/01 0315 AC IV Omeprazole 20 MG DAILY 09/01 1000 AC 09/02 PO 0857 Ondansetron HCl 4 MG Q6P PRN 09/03 0745 AC IV Ondansetron HCl 4 MG ONCE ONE 09/02 2215 DC 09/02 IV 09/02 2216 2219 Tizanidine HCl 2 MG TID PRN 09/01 0415 AC PO Tramadol HCl 50 MG TIDPRN PRN 09/01 0415 AC 09/03 PO 0530 Vital Signs & I&O Last 24 Hrs of Vitals and I&O: Vital Signs Date Time Temp Pulse Resp B/P B/P Pulse O2 O2 Flow FiO2 Mean Ox Delivery Rate 09/03 0646 97.7 93 20 132/84 94 Nasal 1.0L Cannula 09/03 0000 Nasal 1.0L Cannula 09/02 2237 98.4 90 20 120/54 100 Nasal Cannula 09/02 2140 93 Nasal 1.0L Cannula 09/02 1401 97.6 100 20 138/60 92 Nasal 1.0L Cannula 09/02 1121 Nasal 1.0L Cannula 09/02 0856 60 136/70 Intake & Output 09/03 1600 09/03 0800 09/03 0000 Intake Total 440 440 Output Total Balance 440 440 Intake, IV 200 200 Intake, Oral 240 240 Oxygen saturation 1 L 94-100% saturation exam for chest shows persistent crackles but diminished cardiac exam shows regular S1 and S2 without murmurs Impression/Plan Impression/Plan Impression/Plan: 71-year-old woman with endometrial carcinoma status post chemotherapy on August 12 recent unremarkable imaging on August 24 admitted with hypoxic respiratory failure abnormal pulmonary exam and now CT scan with impressive pulmonary nodules tree-in-bud opacities and areas of consolidation without pleural fluid. The rapidity with which this developed suggest an infectious process in a immunocompromised host having a malignancy chemotherapy and recent steroids. Radiographic picture would be atypical for tumor emboli patient is clinically improved after antibiotics complete course of antibiotics and attempt to taper FiO2 Recommendations: Aggressive pulmonary toilet and induce sputum for routine AFB and fungal cultures. Taper FiO2 as saturations allow. Complete. Course of antibiotics. White count has normalized
[2017-09-03] MEDS ORDERED: ZITHROMAX500 M2 PO (15:52)
[2017-09-03 23:02] VITALS: BP 151/81
--- NOTE | 2017-09-04 05:38 | PN- Housestaff ---
See Addendum Subjective Follow-up For: multilobar pneumonia Subjective: persistent dry cough otherwise no complaints Review of Systems Constitutional: Reports: see HPI. Objective Last 24 Hrs of Vital Signs/I&O Vital Signs Date Time Temp Pulse Resp B/P B/P Pulse O2 O2 Flow FiO2 Mean Ox Delivery Rate 09/04 0000 94 Nasal 2.0L Cannula 09/03 2302 98.6 116 18 151/81 94 Nasal 2.0L Cannula 09/03 1948 88 Room Air 09/03 1600 Room Air 09/03 1040 93 132/84 09/03 0910 94 Nasal 1.0L Cannula 09/03 0800 96 Nasal 1.0L Cannula 09/03 0646 97.7 93 20 132/84 94 Nasal 1.0L Cannula Intake & Output 09/04 0800 09/04 0000 09/03 1600 Intake Total 1050 600 Output Total Balance 1050 600 Intake, IV 250 Intake, Oral 800 600 Patient 92.079 kg Weight Physical Exam General Appearance: Alert, Oriented X3, Cooperative, No Acute Distress Cardiovascular: Regular Rate, Normal S1, Normal S2, No Murmurs Lungs: left basilar crackles Abdomen: Normal Bowel Sounds, Soft, No Tenderness, No Masses Extremities: No Clubbing, No Cyanosis, No Edema, Normal Pulses Current Medications: Current Medications Sig/Kwasi Start time Last Medication Dose Route Stop Time Status Admin Acetaminophen 650 MG Q8P PRN 09/01 0315 AC PO Albuterol Sulfate 3 ML BID 09/02 1130 AC 09/03 INH 1942 Albuterol Sulfate 2 PUF Q4-6 PRN PRN 09/01 0400 AC INH Aspirin 81 MG DAILY 09/01 1000 AC 09/03 PO 1040 Atorvastatin Calcium 5 MG 1700 09/01 1700 AC 09/03 PO 1622 Azithromycin 500 MG 2200 09/01 2200 AC 09/03 Sodium Chloride 250 ML IV 2046 Ceftriaxone Sodium 1,000 MG 0 09/01 2200 AC 09/03 IV 2046 Duloxetine HCl 60 MG DAILY 09/01 1000 AC 09/03 PO 1040 Fenofibrate 145 MG DAILY 09/01 1000 AC 09/03 PO 1040 Gabapentin 600 MG BID 09/01 1000 AC 09/03 PO 2045 Guaifenesin 600 MG Q12 09/01 1353 AC 09/03 PO 2045 Heparin Sodium 5,000 UNIT Q8 09/01 0600 AC 09/04 (Porcine) SC 0509 Insulin Aspart 0 TIDAC 09/01 0800 AC 09/03 SC 1713 Insulin Detemir 25 UNITS BID 09/01 1000 AC 09/03 SC 2046 Lisinopril 5 MG DAILY 09/01 1000 AC 09/03 PO 1040 Morphine Sulfate 2 MG Q8P PRN 09/01 0315 AC IV Omeprazole 20 MG DAILY 09/01 1000 AC 09/03 PO 1040 Ondansetron HCl 4 MG Q6P PRN 09/03 0745 AC 09/03 IV 2045 Tizanidine HCl 2 MG TID PRN 09/01 0415 AC PO Tramadol HCl 50 MG TIDPRN PRN 09/01 0415 AC 09/04 PO 0509 Last 24 Hrs of Lab/José Miguel Results Last 24 Hrs of Labs/Mics: Microbiology 09/03 07 LOWER RESP: AFB Culture with PCR Identification - COLB 09/03 700 LOWER RESP: AFB Smear Concentration - COLB 09/03 700 LOWER RESP: Routine Culture - COLB 09/03 700 LOWER RESP: Respiratory Culture - COLB 09/03 700 LOWER RESP: Gram Stain - COLB Assessment/Plan Assessment: 71 year old female with past medical history significant for diabetes, HTN, endometrial cancer s/p MALINI/BSO in 2016 and primary peritoneal carcinoma recently diagnosed in [facility] on chemotherapy with carboplatin and taxel last treatment 08/12 and recently at [facility] for observation with respiratory complaints and was diagnosed viral bronchitis treated with steroid taper and monitored off antibioticspresents with complaints of progressive dyspnea and cough. Acute hypoxemic respiratory failure: secondary to community acquired pneumonia: Patient was hypoxic in ED, afebrile, leukocytosis resolved Continue ceftriaxone and azithromycin for community acquired pneumonia Chest CT without IV contrast New patchy nodular foci of consolidation in the lower lobes and medial right lung apex. Numerable small tree-in-bud nodules scattered throughout both lungs, Findings consistent with infectious bronchiolitis/pneumonia Influenza negative, legionella and strep pneumo urinary antigens negative Induce sputum culture for bacteria, AFB, and fungal cultures TRC evaluation, nebulized albuterol Continue mucinex 600mg PO BID Titrate off oxygen Transition to oral antibiotics Diabetes: Accuchecks TIDAC, glucose 110-240 Novolog sliding scale insulin Levemir 25 units BID Diabetic diet Hypertension: Continue lisinopril Primary peritoneal carcinoma: Outpatient follow up with oncology Diabetic diet DVT ppx-heparin 5000 units subcutaneous Q8H Full code Problem List: 1. Primary peritoneal carcinomatosis 2. Dyspnea 3. Pneumonia 4. Hypoxia Pain Ratin Pain Location: n/a Pain Goal: Pain 4 or less Pain Plan: prn Tomorrow's Labs & Rationales: none
[2017-09-04 06:43] VITALS: BP 140/62
[2017-09-04 08:14] VITALS: BP 140/62
--- NOTE | 2017-09-04 08:53 | Patient Discharge Instructions ---
Discharge Instructions General Discharge Information Special Instructions: Follow up with Dr. Rueda and your primary care provider. You should have a repeat CT Chest performed in 4-6 weeks. Acute Coronary Syndrome Inclusion Criteria At DC or during hospital stay patient has or had the following: ACS DIAGNOSIS No Discharge Core Measures Meds if any: Prescribed or Continued at Discharge Meds if any: NOT Prescribed or Continued at Discharge Congestive Heart Failure Inclusion Criteria At DC or during hospital stay patient has or had the following: CHF DIAGNOSIS No Discharge Core Measures Meds if any: Prescribed or Continued at Discharge Meds if any: NOT Prescribed or Continued at Discharge Cerebrovascular accident Inclusion Criteria At DC or during hospital stay patient has or had the following: CVA/TIA Diagnosis No Discharge Core Measures Meds if any: Prescribed or Continued at Discharge Meds if any: NOT Prescribed or Continued at Discharge Venous thromboembolism Inclusion Criteria VTE Diagnosis No VTE Type NONE VTE Confirmed by (Test) NONE Discharge Core Measures - Per Current guidelines, there needs to be overlap - treatment for the first 5 days of Warfarin therapy. - If discharged on Warfarin prior to 5 days of - overlap therapy, the patient will need to be - assessed for post discharge needs including - *Post discharge parental anticoagulation - *Warfarin and/or parental anticoagulation education - *Follow up date to check INR post discharge At least 5 days overlap therapy as Inpatient No Meds if any: Prescribed or Continued at Discharge Note: Overlap Therapy is Warfarin and Anticoagulant Meds if any: NOT Prescribed or Continued at Discharge
[2017-09-04] MEDS ORDERED: ZITHROMAX500 M2 PO (09:10)
--- NOTE | 2017-09-04 14:28 | PN- Pulmonary ---
Subjective HPI/Critical Care Issues: Pt being dcd per primary team still has a cough General Appearance: Alert, Oriented X3, Cooperative, No Acute Distress Cardiovascular: Regular Rate, Normal S1, Normal S2, No Murmurs Lungs: left basilar crackles Abdomen: Normal Bowel Sounds, Soft, No Tenderness, No Masses Extremities: No Clubbing, No Cyanosis, No Edema, Normal Pulses Objective Current Medications: Current Medications Sig/Kwasi Start time Last Medication Dose Route Stop Time Status Admin Acetaminophen 650 MG Q8P PRN 09/01 0315 DCD PO Albuterol Sulfate 3 ML BID 09/02 1130 DCD 09/04 INH 0911 Albuterol Sulfate 2 PUF Q4-6 PRN PRN 09/01 0400 DCD INH Aspirin 81 MG DAILY 09/01 1000 DCD 09/04 PO 0815 Atorvastatin Calcium 5 MG 1700 09/01 1700 DCD 09/03 PO 1622 Azithromycin 500 MG 2200 09/01 2200 DCD 09/03 Sodium Chloride 250 ML IV 2046 Ceftriaxone Sodium 1,000 MG 2200 09/01 2200 DCD 09/03 IV 2046 Duloxetine HCl 60 MG DAILY 09/01 1000 DCD 09/04 PO 0815 Fenofibrate 145 MG DAILY 09/01 1000 DCD 09/04 PO 0814 Gabapentin 600 MG BID 09/01 1000 DCD 09/04 PO 0830 Guaifenesin 600 MG Q12 09/01 1353 DCD 09/04 PO 0814 Heparin Sodium 5,000 UNIT Q8 09/01 0600 DCD 09/04 (Porcine) SC 0509 Insulin Aspart 0 TIDAC 09/01 0800 DCD 09/03 SC 1713 Insulin Detemir 25 UNITS BID 09/01 1000 DCD 09/04 SC 0818 Lisinopril 5 MG DAILY 09/01 1000 DCD 09/04 PO 0814 Morphine Sulfate 2 MG Q8P PRN 09/01 0315 DCD IV Omeprazole 20 MG DAILY 09/01 1000 DCD 09/04 PO 0814 Ondansetron HCl 4 MG Q6P PRN 09/03 0745 DCD 09/03 IV 2045 Tizanidine HCl 2 MG TID PRN 09/01 0415 DCD PO Tramadol HCl 50 MG TIDPRN PRN 09/01 0415 DCD 09/04 PO 0509 Vital Signs & I&O Last 24 Hrs of Vitals and I&O: Vital Signs Date Time Temp Pulse Resp B/P B/P Pulse O2 O2 Flow FiO2 Mean Ox Delivery Rate 09/04 0914 91 Room Air 09/04 0814 87 140/62 09/04 0800 Nasal 2.0L Cannula 09/04 0643 98.2 87 18 140/62 94 Room Air 09/04 0000 94 Nasal 2.0L Cannula 09/03 2302 98.6 116 18 151/81 94 Nasal 2.0L Cannula 09/03 1948 88 Room Air 09/03 1600 Room Air Intake & Output 09/04 1600 09/04 0800 09/04 0000 Intake Total 60 1050 Output Total Balance 60 1050 Intake, IV 10 250 Intake, Oral 50 800 Number 0 Bowel Movements Impression/Plan Impression/Plan Impression/Plan: 71-year-old woman with endometrial carcinoma status post chemotherapy on August 12 recent unremarkable imaging on August 24 admitted with hypoxic respiratory failure abnormal pulmonary exam and now CT scan with impressive pulmonary nodules tree-in-bud opacities and areas of consolidation without pleural fluid. The rapidity with which this developed suggest an infectious process in a immunocompromised host having a malignancy chemotherapy and recent steroids. Radiographic picture would be atypical for tumor emboli. patient is clinically improved after antibiotics complete course of antibiotics and attempt to taper FiO2 Recommendations: Aggressive pulmonary toilet Pt needs out pt pulm follow up with Dr Rueda Po abx Follow up with pcp and onc and PUlm Needs chest ct and or cxr in few weeks Pt already being dcd and wished to go home
== END 2017-09-04 12:25 | disposition home health service (06) | DRG 193 ==
LOC: ERH 17:26 → ERHI 23:29 → ENRESERV 09-01 02:02 → 2NA 09-01 02:55 → ENPENDDIS 09-04 09:17 → ENTRNSPT 09-04 11:46 → EDTRNSPTSTS 09-04 12:17 → EDTRNSPT 09-04 12:17 → 2NA 09-04 12:25 → CMPTRNSPT 09-04 12:55
PROVIDERS: Internal Medicine Endocrinology, Diabetes & Metabolism; Physician Assistant Medical
DX: J18.9 Pneumonia, unspecified organism (principal); J96.01 Acute respiratory failure with hypoxia; C48.2 Malignant neoplasm of peritoneum, unspecified; J21.9 Acute bronchiolitis, unspecified; E11.65 Type 2 diabetes mellitus with hyperglycemia; I10 Essential (primary) hypertension; H81.09 Meniere's disease, unspecified ear; E78.5 Hyperlipidemia, unspecified; Z79.4 Long term (current) use of insulin; G89.29 Other chronic pain; M54.9 Dorsalgia, unspecified; Z87.891 Personal history of nicotine dependence; Z85.42 Personal history of malignant neoplasm of other parts of uterus
CPT/HCPCS: 2NASP; 36415; 82436; 87040; 87070; 87449; 87450; 87804; 87804-59; 93005; 93010; 96365; 96375; J0456; J0696; J1644; J2405; J3490; J7040